=== PATIENT | female | born 1950 | race African-American/Black ===

== ENCOUNTER → 2016-08-10 | Outpatient (CLI) | payer MEDICARE, OTHER ==
[2016-08-10 13:06] LABS: PROTHROMBIN TIME 34.1 SEC (11.4-15.4)
== END ==
LOC: OD 11:38
PROVIDERS: ATTEND Physician Assistant
DX: Z79.01 Long term (current) use of anticoagulants (principal)
CPT/HCPCS: 36415; 85610

== ENCOUNTER → 2016-08-17 | Outpatient (CLI) | payer MEDICARE, OTHER ==
[2016-08-17 12:07] LABS: PROTHROMBIN TIME 36.5 SEC (11.4-15.4)
== END ==
LOC: OD 11:04
PROVIDERS: ATTEND Physician Assistant
DX: Z79.01 Long term (current) use of anticoagulants (principal)
CPT/HCPCS: 36415; 85610

== ENCOUNTER → 2016-08-20 | Outpatient (CLI) | payer MEDICARE, OTHER ==
[2016-08-20 13:53] LABS: PROTHROMBIN TIME 26.1 SEC (11.4-15.4)
== END ==
LOC: OD 12:51
PROVIDERS: ATTEND Physician Assistant
DX: Z79.01 Long term (current) use of anticoagulants (principal)
CPT/HCPCS: 36415; 85610

== ENCOUNTER 2016-08-31 02:25 | Emergency (ER) | payer MEDICARE, OTHER ==
--- NOTE | 2016-08-31 03:13 | ER Document Report ---
ED Headache - General Chief Complaint: Headache Stated Complaint: HEADACHE Time seen by provider: 03:12 Mode of Arrival: Ambulatory Information source: Patient TRAVEL OUTSIDE OF THE [place] IN LAST 30 DAYS: No - HPI Patient complains to provider of: Headache Patient reports: Prior hemorrhage Onset: Just prior to arrival Onset was: Abrupt Timing: Better Quality of pain: Achy Severity: Mild Pain Level: 2 Associated symptoms: Neck pain Similar symptoms previously: Yes Recently seen / treated by doctor: Yes Notes: Patient is a 66-year-old female presenting to the emergency room complaining of a headache that woke her up from sleep, states that it felt like someone hit her in the head, she saw flashing point light, and now her ears are ringing, she denies any vision changes, no nausea or vomiting, no fever or chills, patient does has a history of a previous intracranial bleed and currently takes Coumadin for history of mitral valve replacement - Related Data Allergies/Adverse Reactions: omega-3 acid ethyl esters Allergy (Verified 08/31/16 02:31) propoxyphene napsylate [From Darvocet-N 100] Allergy (Verified 08/31/16 02:31) Past Medical History - General Information source: Patient - Social History Smoking Status: Unknown if Ever Smoked Family History: Arthritis, CAD, CVA, Hyperlipidemia, Hypertension, Malignancy, Thyroid Disfunction, Other - Past Medical History Cardiac Medical History: Reports: Hx Hypercholesterolemia, Hx Hypertension Endocrine Medical History: Reports: Hx Graves' Disease, Hx Hypothyroidism Renal/ Medical History: Reports: Hx Ectopic . Denies: Hx Peritoneal Dialysis GI Medical History: Reports: Hx Colonoscopy - With polyps removed, Hx Endoscopy Musculoskeltal Medical History: Reports Hx Musculoskeletal Deformity Past Surgical History: Reports: Hx Cardiac Surgery - Mitral valve mechanical, Hx Hysterectomy, Hx Thyroid Surgery - Removed r/t goiter - Immunizations Hx Diphtheria, Pertussis, Tetanus Vaccination: Yes - 2002 Hx Pneumococcal Vaccination: 05/01/10 Review of Systems - Review of Systems Constitutional: No symptoms reported EENT: No symptoms reported Cardiovascular: No symptoms reported Respiratory: No symptoms reported Gastrointestinal: No symptoms reported Genitourinary: No symptoms reported Female Genitourinary: No symptoms reported Musculoskeletal: No symptoms reported Skin: No symptoms reported Hematologic/Lymphatic: No symptoms reported Neurological/Psychological: Headaches -: Yes All other systems reviewed and negative Physical Exam - Vital signs Vitals: Temp Pulse Resp BP Pulse Ox 98 F 87 17 139/73 H 97 08/31/16 02:35 08/31/16 02:35 08/31/16 02:35 08/31/16 02:35 08/31/16 02:35 Interpretation: Normal - General General appearance: Appears well, Alert - HEENT Head: Normocephalic, Atraumatic Eyes: Normal Pupils: PERRL - Respiratory Respiratory status: No respiratory distress Chest status: Nontender Breath sounds: Normal Chest palpation: Normal - Cardiovascular Rhythm: Regular Heart sounds: Normal auscultation Murmur: No - Abdominal Inspection: Normal Distension: No distension Bowel sounds: Normal Tenderness: Nontender Organomegaly: No organomegaly - Back Back: Normal, Nontender - Extremities General upper extremity: Normal inspection, Nontender, Normal color, Normal ROM , Normal temperature General lower extremity: Normal inspection, Nontender, Normal color, Normal ROM , Normal temperature, Normal weight bearing. No: Crista's sign - Neurological Neuro grossly intact: Yes Cognition: Normal Orientation: AAOx4 Ro Coma Scale Eye Opening: Spontaneous [place] Coma Scale Verbal: Oriented [place] Coma Scale Motor: Obeys Commands [place] Coma Scale Total: 15 Speech: Normal Motor strength normal: LUE, RUE, LLE, RLE Sensory: Normal - Psychological Associated symptoms: Normal affect, Normal mood - Skin Skin Temperature: Warm Skin Moisture: Dry Skin Color: Normal Course - Re-evaluation Re-evalutation: 08/31/16 04:07 Patient resting comfortably, no symptoms at present time, lab and imaging findings were discussed with patient at bedside, she was informed of her elevated INR, patient reports that she takes Coumadin 5 mg on Tuesday, Tuesday and Tuesday, and 2.5 mg the remaining days of the week, she was advised to take 2.5 mg for the next 3 days and then follow-up with her primary care provider for repeat INR level, she was also advised to follow-up with a neurologist for her continued intermittent head pain, patient acknowledges understanding and agreement with this plan - Vital Signs Vital signs: Temp Pulse Resp BP Pulse Ox 98 F 87 17 139/73 H 97 08/31/16 02:35 08/31/16 02:35 08/31/16 02:35 08/31/16 02:35 01/31/17 02:35 - Laboratory Result Diagrams: 08/31/16 03:25 08/31/16 03:25 Laboratory results interpreted by me: 08/31/16 08/31/16 08/31/16 03:25 03:25 03:25 MCH 25.4 L MCHC 31.8 L RDW 19.4 H PT 43.1 H APTT 73.5 H Est GFR (Non-Af Amer) 52 L Glucose 124 H Alkaline Phosphatase 157 H Total Protein 8.4 H - Diagnostic Test Radiology reviewed: Image reviewed, Reports reviewed Discharge - Discharge Clinical Impression: Supratherapeutic INR Headache Qualifiers: Headache type: unspecified Headache chronicity pattern: acute headache Intractability: not intractable Qualified Code(s): R51 - Headache Condition: Stable Disposition: HOME, SELF-CARE Instructions: Headache ([facility]) Additional Instructions: Take 2.5 mg of Coumadin for the next 3 days. Follow-up with your primary care provider in 2-3 days for repeat Coumadin level and further evaluation and treatment. Follow-up with a neurologist within the next week. Return to the emergency room immediately if symptoms worsen or any additional concerns.
[2016-08-31 03:43] LABS: ABSOLUTE BASOPHILS # (AUTO) 0.1 10^3/uL (0.0-0.2); ABSOLUTE EOSINOPHILS # (AUTO) 0.2 10^3/uL (0.0-0.6); ABSOLUTE LYMPHOCYTES (AUTO) 2.5 10^3/uL (0.5-4.7); ABSOLUTE MONOCYTES (AUTO) 0.7 10^3/uL (0.1-1.4); ABSOLUTE NEUT (AUTO) 6.2 10^3/uL (1.7-8.2); BASOPHILS % (AUTO) 0.6 % (0-2); EOSINOPHILS % (AUTO) 1.8 % (0-6); HEMATOCRIT 38.9 % (36.0-47.0); HEMOGLOBIN 12.4 g/dL (12.0-15.5); HGB HCT DIFFERENCE -1.7; LYMPHOCYTES % (AUTO) 26.1 % (13-45); MEAN CORPUSCULAR HEMOGLOBIN 25.4 pg (27.0-33.4); MEAN CORPUSCULAR HGB CONC 31.8 g/dL (32.0-36.0); MEAN CORPUSCULAR VOLUME 80 fl (80-97); MONOCYTES % (AUTO) 7.7 % (3-13); RED BLOOD COUNT 4.86 10^6/uL (3.72-5.28); RED CELL DISTRIBUTION WIDTH 19.4 % (11.5-14.0); SEGMENTED NEUTROPHILS % (AUTO) 63.8 % (42-78); WHITE BLOOD COUNT 9.7 10^3/uL (4.0-10.5)
[2016-08-31 04:02] LABS: PROTHROMBIN TIME 43.1 SEC (11.4-15.4)
[2016-08-31 04:03] LABS: ALANINE AMINOTRANSFERASE 38 U/L (9-52); ALBUMIN 4.4 g/dL (3.5-5.0); ALKALINE PHOSPHATASE 157 U/L (38-126); ANION GAP 15 (5-19); ASPARTATE AMINO TRANSFERASE 25 U/L (14-36); BILIRUBIN,TOTAL 0.6 mg/dL (0.2-1.3); BLOOD UREA NITROGEN 20 mg/dL (7-20); CARBON DIOXIDE 29 mmol/L (22-30); CHLORIDE 100 mmol/L (98-107); CREATININE RESULT 1.05 mg/dL (0.52-1.25); GLUCOSE 124 mg/dL (75-110); PARTIAL THROMBOPLASTIN TIME 73.5 SEC (23.5-35.8); POTASSIUM 3.7 mmol/L (3.6-5.0); SODIUM 143.8 mmol/L (137-145); TOTAL PROTEIN 8.4 g/dL (6.3-8.2)
[2016-08-31 04:52] VITALS: BP 128/78
--- NOTE | 2016-08-31 11:02 | EKG REPORT ---
SEVERITY:- ABNORMAL ECG - SINUS RHYTHM NONSPECIFIC INTRAVENTRICULAR CONDUCTION DELAY PROBABLE LEFT VENTRICULAR HYPERTROPHY : Confirmed by: Shoshana Johnson 31-Aug-2016 11:01:43
== END 2016-08-31 04:20 | disposition home or self-care (01) ==
LOC: ER 02:25
DX: R51 Headache (principal); H53.8 Other visual disturbances; H93.19 Tinnitus, unspecified ear; Z95.2 Presence of prosthetic heart valve; Z79.01 Long term (current) use of anticoagulants; Z88.8 Allergy status to other drugs, medicaments and biological substances; Z88.5 Allergy status to narcotic agent; Z82.3 Family history of stroke
CPT/HCPCS: 36415; 70450; 80053; 85025; 85610; 85730; 93005; 93010; 99284

== ENCOUNTER → 2016-09-09 | Outpatient (CLI) | payer MEDICARE, OTHER ==
[2016-09-09 14:15] LABS: PROTHROMBIN TIME 24.2 SEC (11.4-15.4)
[2016-09-09 14:30] LABS: ANION GAP 12 (5-19); BLOOD UREA NITROGEN 24 mg/dL (7-20); CALCIUM 10.1 mg/dL (8.4-10.2); CARBON DIOXIDE 29 mmol/L (22-30); CHLORIDE 103 mmol/L (98-107); CREATININE RESULT 1.21 mg/dL (0.52-1.25); GLUCOSE 89 mg/dL (75-110); POTASSIUM 4.4 mmol/L (3.6-5.0); SODIUM 143.9 mmol/L (137-145)
== END ==
LOC: OD 13:13
PROVIDERS: ATTEND Internal Medicine
DX: Z79.01 Long term (current) use of anticoagulants (principal); R42 Dizziness and giddiness; I10 Essential (primary) hypertension; E78.4 Other hyperlipidemia; I65.22 Occlusion and stenosis of left carotid artery; G47.30 Sleep apnea, unspecified; I35.8 Other nonrheumatic aortic valve disorders; Z95.2 Presence of prosthetic heart valve; Z79.899 Other long term (current) drug therapy
CPT/HCPCS: 36415; 80048; 85610

== ENCOUNTER → 2016-09-30 | Outpatient (CLI) | payer MEDICARE, OTHER ==
--- NOTE | 2016-10-01 12:49 | XCELERA REPORT ---
[address] [address] Lower Extremity Venous Evaluation Name: SILVA LUO Age: 66 yrs Gender: Female : 1950 Patient Status: Outpatient Patient Location: Study Date: 09/30/2016 01:30 PM Procedure: Color flow and duplex imaging bilaterally of the veins of the lower extremities as well as the Common Femoral veins. Reason For Study: BLE EDEMA Ordering Physician: JOSE CALLES Performed By: Arjun Moreau Right Sided Venous Evaluation Normal vessel filling wall to wall, compression and augmentation as well as Colour flow down to the infrageniculate veins. Left Sided Venous Evaluation Normal vessel filling wall to wall, compression and augmentation as well as Colour flow down to the infrageniculate veins. Interpretation Summary No duplex evidence of DVT or obstruction in the bilateral lower extremities. : JOSE CALLES > Oc Mahmood
== END ==
LOC: SP 12:57
PROVIDERS: ATTEND Specialist
DX: R60.0 Localized edema (principal)
CPT/HCPCS: 93970

== ENCOUNTER 2016-10-08 12:00 | Emergency (ER) | payer MEDICARE, OTHER ==
--- NOTE | 2016-10-08 12:45 | ER Document Report ---
ED Medical Screen (RME) - General Stated Complaint: RIGHT EYE PAIN, HEADACHE Notes: Patient states she felt a pop in her right eye last night, seeing bright lights. Complains of blurriness in the right eye since then. Patient did have a nosebleed from the right nostril this morning. Also complains of a slight headache which she states it is above the eyes. Denies trauma, and this has never happened to the patient before. Patient states she was seen in July and had bleeding on the brain. I have greeted and performed a rapid initial assessment of this patient. A comprehensive ED assessment and evaluation of the patient, analysis of test results and completion of the medical decision making process will be conducted by additional ED providers. TRAVEL OUTSIDE OF THE [place] IN LAST 30 DAYS: No - Related Data Allergies/Adverse Reactions: omega-3 acid ethyl esters Allergy (Verified 10/08/16 12:40) propoxyphene napsylate [From Darvocet-N 100] Allergy (Verified 10/08/16 12:40) Past Medical History - Past Medical History Cardiac Medical History: Reports: Hx Hypercholesterolemia, Hx Hypertension Endocrine Medical History: Reports: Hx Graves' Disease, Hx Hypothyroidism Renal/ Medical History: Reports: Hx Ectopic . Denies: Hx Peritoneal Dialysis GI Medical History: Reports: Hx Colonoscopy - With polyps removed, Hx Endoscopy Musculoskeltal Medical History: Reports Hx Musculoskeletal Deformity Past Surgical History: Reports: Hx Cardiac Surgery - Mitral valve mechanical, Hx Hysterectomy, Hx Thyroid Surgery - Removed r/t goiter - Immunizations Hx Diphtheria, Pertussis, Tetanus Vaccination: Yes - 2002 Physical Exam - Vital signs Vitals: Temp Pulse Resp BP Pulse Ox 98.1 F 69 16 135/67 H 97 10/08/16 12:07 10/08/16 12:07 10/08/16 12:07 10/08/16 12:07 10/08/16 12:07 Course - Vital Signs Vital signs: Temp Pulse Resp BP Pulse Ox 98.1 F 69 16 135/67 H 97 10/08/16 12:07 10/08/16 12:07 10/08/16 12:07 10/08/16 12:07 10/08/16 12:07
--- NOTE | 2016-10-08 16:22 | ER Document Report ---
ED General - General Chief Complaint: Eye Pain Stated Complaint: RIGHT EYE PAIN, HEADACHE Time seen by provider: 16:18 Mode of Arrival: Ambulatory Information source: Patient Notes: This is a 66-year-old female with a history of her prosthetic mitral valve (on Coumadin), history of right frontoparietal intraparenchymal bleed (July 2016 ). Patient presents today with complaints of "bright light in the right eye, slight blurry vision, nosebleed, slight headach". Patient's symptoms began this morning. He was concerned about an intracranial bleed and came to the emergency room. TRAVEL OUTSIDE OF THE [place] IN LAST 30 DAYS: No - HPI Onset: Just prior to arrival Onset/Duration: Gradual Quality of pain: No pain Severity: None Pain Level: Denies Associated symptoms: denies: Chills, Fever Exacerbated by: Denies Relieved by: Denies Similar symptoms previously: Yes Recently seen / treated by doctor: Yes - Related Data Allergies/Adverse Reactions: omega-3 acid ethyl esters Allergy (Verified 10/08/16 12:40) propoxyphene napsylate [From Darvocet-N 100] Allergy (Verified 10/08/16 12:40) Past Medical History - General Information source: Patient - Social History Smoking Status: Never Smoker Cigarette use (# per day): No Chew tobacco use (# tins/day): No Frequency of alcohol use: None Drug Abuse: None Lives with: Family Family History: Arthritis, CAD, CVA, Hyperlipidemia, Hypertension, Malignancy, Thyroid Disfunction, Other Patient has suicidal ideation: No Patient has homicidal ideation: No - Past Medical History Cardiac Medical History: Reports: Hx Hypercholesterolemia, Hx Hypertension Endocrine Medical History: Reports: Hx Graves' Disease, Hx Hypothyroidism Renal/ Medical History: Reports: Hx Ectopic . Denies: Hx Peritoneal Dialysis GI Medical History: Reports: Hx Colonoscopy - With polyps removed, Hx Endoscopy Musculoskeltal Medical History: Reports Hx Musculoskeletal Deformity Past Surgical History: Reports: Hx Cardiac Surgery - Mitral valve mechanical, Hx Hysterectomy, Hx Thyroid Surgery - Removed r/t goiter - Immunizations Hx Diphtheria, Pertussis, Tetanus Vaccination: Yes - 2002 Hx Pneumococcal Vaccination: 05/01/10 Review of Systems - Review of Systems Constitutional: denies: Chills, Fever EENT: Other - Nosebleed, visual changes Cardiovascular: No symptoms reported Respiratory: No symptoms reported Gastrointestinal: No symptoms reported Genitourinary: No symptoms reported Female Genitourinary: No symptoms reported Musculoskeletal: No symptoms reported Skin: No symptoms reported Hematologic/Lymphatic: No symptoms reported Neurological/Psychological: See HPI Physical Exam - Vital signs Vitals: Temp Pulse Resp BP Pulse Ox 98.1 F 69 16 135/67 H 97 10/08/16 12:07 10/08/16 12:07 10/08/16 12:07 10/08/16 12:07 10/08/16 12:07 Notes: Physical exam: GENERAL: 66-year-old female, alert and oriented 3, no acute distress. Patient ambulating around the emergency room without difficulty. Patient is conversant and does not appear to be in any distress. HEAD: Atraumatic, normocephalic. EYES: Pupils equal round and reactive to light, extraocular movements intact, sclera anicteric, conjunctiva are normal. ENT: TMs normal, nares patent (bleeding resolved), oropharynx clear without exudates. Moist mucous membranes. NECK: Normal range of motion, supple without lymphadenopathy or JVD. LUNGS: Breath sounds clear to auscultation bilaterally and equal. No wheezes rales or rhonchi. HEART: Regular rate and rhythm with mitral click from the prosthetic valve. ABDOMEN: Soft, normoactive bowel sounds. No tenderness to palpation. No guarding, no rebound. No masses appreciated. EXTREMITIES: Normal range of motion, no pitting or edema. No clubbing or cyanosis. NEUROLOGICAL: Cranial nerves II through XII grossly intact. Motor 5/5, sensory grossly intact, cerebellar (finger to nose) good, gait normal. PSYCH: Normal mood, normal affect. SKIN: Warm, Dry, normal turgor, no rashes or lesions noted. Course - Re-evaluation Re-evalutation: 10/08/16 18:46 I reviewed the labs with the patient. Her INR is 2.9. The goal for her anticoagulation is between [address] of the head shows no bleed. She will follow-up with her primary care doctor. I've given her a copy of today's labs, CT report. She also has had follow-up with her neurologist with a recent EEG and has plans to follow-up with Dr. ayala. She is well has an appointment with the hairmasters manager. I've advised her that if the visual changes get worse , she should call her hairmasters manager to get in sooner or return to the emergency room. The concern for this patient given her history and the fact that she is on Coumadin is for any bleeding, CT does not reveal any evidence of acute bleeding at this time and her Coumadin level is therapeutic. She is ambulating around the emergency room at this time and looks quite good. 10/08/16 18:46 10/08/16 18:47 - Vital Signs Vital signs: Temp Pulse Resp BP Pulse Ox 98.1 F 69 16 135/67 H 97 10/08/16 12:07 10/08/16 12:07 10/08/16 12:07 10/08/16 12:07 10/08/16 12:07 - Laboratory Result Diagrams: 10/08/16 16:18 10/08/16 16:18 Laboratory results interpreted by me: 10/08/16 10/08/16 10/08/16 16:18 16:18 17:20 MCH 25.6 L MCHC 31.5 L RDW 18.7 H PT 31.8 H Sodium 146.3 H Carbon Dioxide 31 H Calcium 10.4 H Alkaline Phosphatase 146 H - Diagnostic Test Radiology reviewed: Image reviewed, Reports reviewed - CT of the head shows no acute bleed Discharge - Discharge Clinical Impression: headache, nosebleed resolved Condition: Stable Disposition: HOME, SELF-CARE Additional Instructions: Recommendations: 1. Follow-up with your hairmasters manager as planned. 2. Continue current medicines. 3. Follow-up with Dr. Carter this week: Tell the office you in the emergency room and had a CT of the head. 4. Follow-up with your neurologist as planned. 5. Return to the emergency room for worsening headache, worsening vision changes, any concerns he getting worse. Referrals: SNOW CARTER MD [Primary Care Provider] - Follow up as needed
[2016-10-08 16:46] LABS: ABSOLUTE BASOPHILS # (AUTO) 0.2 10^3/uL (0.0-0.2); ABSOLUTE EOSINOPHILS # (AUTO) 0.2 10^3/uL (0.0-0.6); ABSOLUTE LYMPHOCYTES (AUTO) 2.1 10^3/uL (0.5-4.7); ABSOLUTE MONOCYTES (AUTO) 0.6 10^3/uL (0.1-1.4); ABSOLUTE NEUT (AUTO) 5.6 10^3/uL (1.7-8.2); BASOPHILS % (AUTO) 1.9 % (0-2); EOSINOPHILS % (AUTO) 2.6 % (0-6); HEMATOCRIT 38.5 % (36.0-47.0); HEMOGLOBIN 12.1 g/dL (12.0-15.5); HGB HCT DIFFERENCE -2.2; LYMPHOCYTES % (AUTO) 24.2 % (13-45); MEAN CORPUSCULAR HEMOGLOBIN 25.6 pg (27.0-33.4); MEAN CORPUSCULAR HGB CONC 31.5 g/dL (32.0-36.0); MEAN CORPUSCULAR VOLUME 81 fl (80-97); MONOCYTES % (AUTO) 6.7 % (3-13); RED BLOOD COUNT 4.74 10^6/uL (3.72-5.28); RED CELL DISTRIBUTION WIDTH 18.7 % (11.5-14.0); SEGMENTED NEUTROPHILS % (AUTO) 64.6 % (42-78); WHITE BLOOD COUNT 8.7 10^3/uL (4.0-10.5)
[2016-10-08 17:04] LABS: ALANINE AMINOTRANSFERASE 37 U/L (9-52); ALBUMIN 4.6 g/dL (3.5-5.0); ALKALINE PHOSPHATASE 146 U/L (38-126); ANION GAP 11 (5-19); ASPARTATE AMINO TRANSFERASE 26 U/L (14-36); BILIRUBIN,TOTAL 0.9 mg/dL (0.2-1.3); BLOOD UREA NITROGEN 16 mg/dL (7-20); CALCIUM 10.4 mg/dL (8.4-10.2); CARBON DIOXIDE 31 mmol/L (22-30); CHLORIDE 104 mmol/L (98-107); CREATININE RESULT 0.94 mg/dL (0.52-1.25); GLUCOSE 89 mg/dL (75-110); POTASSIUM 4.1 mmol/L (3.6-5.0); SODIUM 146.3 mmol/L (137-145); TOTAL PROTEIN 8.2 g/dL (6.3-8.2)
[2016-10-08 17:33] LABS: THYROID STIMULATING HORMONE 2.03 uIU/mL (0.47-4.68)
[2016-10-08 17:42] LABS: PROTHROMBIN TIME 31.8 SEC (11.4-15.4)
[2016-10-08 18:50] VITALS: BP 133/72
== END 2016-10-08 18:50 | disposition home or self-care (01) ==
LOC: ER 12:00
DX: R51 Headache (principal); R04.0 Epistaxis; H53.8 Other visual disturbances; I10 Essential (primary) hypertension; E89.0 Postprocedural hypothyroidism; Z95.2 Presence of prosthetic heart valve; Z79.01 Long term (current) use of anticoagulants; Z88.5 Allergy status to narcotic agent; Z88.8 Allergy status to other drugs, medicaments and biological substances; Z82.3 Family history of stroke
CPT/HCPCS: 36415; 70450; 80053; 84439; 84443; 85025; 85610; 99284

== ENCOUNTER → 2017-01-01 | Outpatient (CLI) | payer MEDICARE, OTHER ==
[2017-01-01 12:02] LABS: PROTHROMBIN TIME 19.5 SEC (11.4-15.4)
== END ==
LOC: LAB 11:36
PROVIDERS: ATTEND Physician Assistant
DX: Z79.01 Long term (current) use of anticoagulants (principal)
CPT/HCPCS: 36415; 85610

== ENCOUNTER → 2017-01-07 | Outpatient (CLI) | payer MEDICARE, OTHER ==
[2017-01-07 13:43] LABS: PROTHROMBIN TIME 16.3 SEC (11.4-15.4)
== END ==
LOC: LAB 12:56
PROVIDERS: ATTEND Physician Assistant
DX: Z79.01 Long term (current) use of anticoagulants (principal); Z51.81 Encounter for therapeutic drug level monitoring
CPT/HCPCS: 36415; 85610

== ENCOUNTER → 2017-01-10 | Outpatient (CLI) | payer MEDICARE, OTHER ==
[2017-01-10 12:41] LABS: PROTHROMBIN TIME 24.4 SEC (11.4-15.4)
== END ==
LOC: LAB 12:12
PROVIDERS: ATTEND Physician Assistant
DX: Z79.01 Long term (current) use of anticoagulants (principal)
CPT/HCPCS: 36415; 85610

== ENCOUNTER → 2017-02-10 | Outpatient (CLI) | payer MEDICARE ==
--- NOTE | 2017-02-11 08:53 | WOMENS IMAGING REPORT ---
EXAM DESCRIPTION: BILAT SCREENING MAMMO W/CAD COMPLETED DATE/TIME: 02/10/2017 4:21 pm REASON FOR STUDY: ROUTINE SCREENING; Z12.31 Z12.31 ENCNTR SCREEN MAMMOGRAM FOR MALIGNANT NEOPLASM O F INEZ COMPARISON: Multiple since 2013 TECHNIQUE: Standard craniocaudal and mediolateral oblique views of each breast recorded using Qlibria l acquisition. LIMITATIONS: None. FINDINGS: Findings present which are benign by mammographic criteria. No suspicious masses, calcifi cations or architectural distortion. Pertinent benign findings: Benign bilateral calcifications Read with the assistance of CAD. [facility] - R2 Cenova Version 1.3 .[facility] - R2 Cenova Version 1.[address] - R2 Cenova Version 2.4 .[facility] - R2 Cenova Version 2.4 .[facility] - R2 Cementer Version 9.2 Benign mammographic findings may include one or more of the following: Smooth masses, popcorn/rim/co arse calcifications, asymmetries, post-procedure changes, and lesions with long-standing stability. IMPRESSION: BENIGN MAMMOGRAPHIC FINDINGS. BIRADS 2 BREAST DENSITY: b. There are scattered areas of fibroglandular density. BIRAD: 2 BENIGN FINDING(S) RECOMMENDATION: ROUTINE SCREENING Please consider bilateral screening tomosynthesis in January 2018 COMMENT: The patient has been notified of the results by letter per MQSA requirements. Additional no tification policies are in place for contacting patient with suspicious or incomplete findings. Quality ID #[id number]: The [employer] recommends an annual screening mammogram for women aged 40 years or over. This facility utilizes a reminder system to ensure that all patients receive reminder letters, and/or direct phone calls for appointments. This includes reminders for routine scr eening mammograms, diagnostic mammograms, or other Breast Imaging Interventions when appropriate. Th is patient will be placed in the appropriate reminder system. The [employer] (ACR) has developed recommendations for screening MRI of the breast s in certain patient populations, to be used in conjunction with mammography. Breast MRI surveillanc e may be appropriate for women with more than 20% lifetime risk of developing breast cancer as deter mined by genetic testing, significant family history of the disease, or history of mantle radiation f or Hodgkins Disease. ACR Practice Guidelines 2008. TECHNICAL DOCUMENTATION: FINDING NUMBER: (1) ASSESSMENT: (1) JOB ID: [id number] [employer]- All Rights Reserved
== END ==
LOC: WI 15:07
PROVIDERS: ATTEND Physician Assistant
DX: Z12.31 Encounter for screening mammogram for malignant neoplasm of breast (principal)
CPT/HCPCS: 77067; G0202

== ENCOUNTER 2017-02-24 12:06 | Emergency (ER) | payer MEDICARE, OTHER ==
[2017-02-24 12:14] VITALS: BP 138/65
--- NOTE | 2017-02-24 12:31 | ER Document Report ---
ED Extremity Problem, Lower - General Chief Complaint: Ankle Pain Stated Complaint: ANKLE PAIN Time Seen by Provider: 02/24/17 12:25 Notes: Patient states that for 1 month she had some discoloration of both ankles and feet. She states she also has "altered sensation" that she believes is consistent with a pins and needles sensation in both feet. She states she is concerned that there is no appropriate blood flow to her feet. She states that 2 weeks ago she went to her primary medical doctor and he ran blood tests but they were all normal. She also states that her INR was checked and it was appropriate. Patient states she takes warfarin for a mitral valve replacement. Patient states the sensation is intermittent. Nothing makes it better or worse. There is no radiation of the symptoms. TRAVEL OUTSIDE OF THE [place] IN LAST 30 DAYS: No - Related Data Allergies/Adverse Reactions: omega-3 acid ethyl esters Allergy (Verified 02/24/17 12:10) propoxyphene napsylate [From Darvocet-N 100] Allergy (Verified 02/24/17 12:10) Past Medical History - General Information source: Patient - Social History Smoking Status: Never Smoker Chew tobacco use (# tins/day): No Frequency of alcohol use: None Drug Abuse: None Family History: Arthritis, CAD, CVA, Hyperlipidemia, Hypertension, Malignancy, Thyroid Disfunction, Other - Medical History Medical History: Other - Valve replacement on Coumadin, intracerebral hemorrhage. - Past Medical History Cardiac Medical History: Reports: Hx Hypercholesterolemia, Hx Hypertension Endocrine Medical History: Reports: Hx Diabetes Mellitus Type 2, Hx Graves' Disease, Hx Hypothyroidism Renal/ Medical History: Reports: Hx Ectopic . Denies: Hx Peritoneal Dialysis GI Medical History: Reports: Hx Colonoscopy - With polyps removed, Hx Endoscopy Musculoskeltal Medical History: Reports Hx Musculoskeletal Deformity Past Surgical History: Reports: Hx Cardiac Surgery - Mitral valve mechanical, Hx Hysterectomy, Hx Thyroid Surgery - Removed r/t goiter - Immunizations Hx Diphtheria, Pertussis, Tetanus Vaccination: Yes - 2002 Hx Pneumococcal Vaccination: 05/01/10 Review of Systems - Review of Systems Constitutional: denies: Chills, Fever Respiratory: denies: Cough, Short of breath Gastrointestinal: denies: Diarrhea, Vomiting Physical Exam - Vital signs Vitals: Temp Pulse Resp BP Pulse Ox 97.8 F 68 16 138/65 H 98 02/24/17 12:12 02/24/17 12:12 02/24/17 12:12 02/24/17 12:12 02/24/17 12:12 Interpretation: Normal - General General appearance: Appears well, Alert - Respiratory Respiratory status: No respiratory distress Chest status: Nontender Breath sounds: Normal Chest palpation: Normal - Cardiovascular Rhythm: Regular Heart sounds: Normal auscultation Murmur: No Pulses: Bounding: Dorsalis pedis - Bilateral Normal capillary refill: Yes - Bilateral toe - Extremities General upper extremity: Normal inspection, Nontender, Normal color, Normal ROM , Normal temperature General lower extremity: Nontender, Edema, Normal ROM, Normal temperature, Normal weight bearing. No: Crista's sign Foot: Normal - biLateral - Psychological Associated symptoms: Normal affect, Normal mood - Skin Skin Temperature: Warm Skin Moisture: Dry Skin Color: Hyperpigmentation - Bilateral ankles Course - Vital Signs Vital signs: Temp Pulse Resp BP Pulse Ox 97.8 F 68 16 138/65 H 98 02/24/17 12:12 02/24/17 12:12 02/24/17 12:12 02/24/17 12:12 02/24/17 12:12 Discharge - Discharge Clinical Impression: Paresthesias Condition: Stable Disposition: HOME, SELF-CARE Instructions: Numbness or Paresthesia ([facility]) Additional Instructions: Please follow-up with your early childhood associate as scheduled
== END 2017-02-24 12:35 | disposition home or self-care (01) ==
LOC: ER 12:06
DX: R20.2 Paresthesia of skin (principal); Z95.2 Presence of prosthetic heart valve; Z79.01 Long term (current) use of anticoagulants
CPT/HCPCS: 99283

== ENCOUNTER → 2017-06-24 | Outpatient (CLI) | payer MEDICARE, OTHER ==
[2017-06-24 15:13] LABS: ANION GAP 15 (5-19); BLOOD UREA NITROGEN 24 mg/dL (7-20); CALCIUM 9.6 mg/dL (8.4-10.2); CARBON DIOXIDE 24 mmol/L (22-30); CHLORIDE 105 mmol/L (98-107); CREATININE RESULT 1.17 mg/dL (0.52-1.25); GLUCOSE 94 mg/dL (75-110); POTASSIUM 4.1 mmol/L (3.6-5.0); SODIUM 144.1 mmol/L (137-145)
== END ==
LOC: OD 13:38
PROVIDERS: ATTEND Internal Medicine
DX: R42 Dizziness and giddiness (principal); Z95.2 Presence of prosthetic heart valve; I10 Essential (primary) hypertension; I35.8 Other nonrheumatic aortic valve disorders; R01.1 Cardiac murmur, unspecified; E78.4 Other hyperlipidemia; I65.22 Occlusion and stenosis of left carotid artery; G47.30 Sleep apnea, unspecified; Z79.899 Other long term (current) drug therapy
CPT/HCPCS: 36415; 80048

== ENCOUNTER → 2017-07-28 | Outpatient (CLI) | payer MEDICARE, OTHER ==
--- NOTE | 2017-07-28 14:30 | RADIOLOGY REPORT (SQ) ---
EXAM DESCRIPTION: CHEST PA/LATERAL COMPLETED DATE/TIME: 07/28/2017 1:37 pm REASON FOR STUDY: OTH SYMPTOMS AND SIGNS INVOLVING THE CIRC AND RESP SYSTEMS COMPARISON: July 2016 EXAM PARAMETERS: NUMBER OF VIEWS: two views TECHNIQUE: Digital Frontal and Lateral radiographic views of the chest acquired. RADIATION DOSE: NA LIMITATIONS: none FINDINGS: LUNGS AND PLEURA: No opacities, masses or pneumothorax. No pleural effusion. MEDIASTINUM AND HILAR STRUCTURES: No masses or contour abnormalities. HEART AND VASCULAR STRUCTURES: Cardiac silhouette remains enlarged and is unchanged in configuration BONES: No acute findings. HARDWARE: Patient is status post median sternotomy with mitral valve replacement. OTHER: No other significant finding. IMPRESSION: No significant interval change. Cardiomegaly. No acute changes. Other findings as not ed above TECHNICAL DOCUMENTATION: JOB ID: [id number] [employer]- All Rights Reserved
== END ==
LOC: OD 13:02
PROVIDERS: ATTEND Physician Assistant
DX: R09.89 Other specified symptoms and signs involving the circulatory and respiratory systems (principal)
CPT/HCPCS: 71020

== ENCOUNTER 2017-08-14 06:28 | Emergency (ER) | payer MEDICARE, OTHER ==
--- NOTE | 2017-08-14 07:21 | RADIOLOGY REPORT (SQ) ---
EXAM DESCRIPTION: CT HEAD WITHOUT CLINICAL HISTORY: headache COMPARISON: 08/31/2016 TECHNIQUE: Axial CT of the head obtained from the skull apex to the skull base without contrast. FINDINGS: No acute intracranial hemorrhage identified. No mass, mass effect, shift of the midline, abnormal extra-axial fluid collection or CT evidence of acute ischemic change identified. The ventricular system and sulcal spaces are mildly enlarged compatible with mild cerebral atrophy. Scattered areas of hypodensity throughout the supratentorial white matter are nonspecific and may be related to chronic small vessel ischemic change. Minimal opacities in the left maxillary sinus. Mastoid air cells are well aerated. Hyperostosis frontalis interna. No skull fracture identified. Visualized orbits and globes are unremarkable. Atherosclerotic calcification of the intracranial internal carotid arteries. DLP:1162.97 mGy-cm IMPRESSION: 1. No acute intracranial abnormality by CT criteria. This exam was performed according to our departmental dose-optimization program, which includes automated exposure control, adjustment of the mA and/or kV according to patient size and/or use of iterative reconstruction technique.
[2017-08-14 07:23] LABS: ABSOLUTE BASOPHILS # (AUTO) 0.1 10^3/uL (0.0-0.2); ABSOLUTE EOSINOPHILS # (AUTO) 0.2 10^3/uL (0.0-0.6); ABSOLUTE LYMPHOCYTES (AUTO) 1.8 10^3/uL (0.5-4.7); ABSOLUTE MONOCYTES (AUTO) 0.6 10^3/uL (0.1-1.4); ABSOLUTE NEUT (AUTO) 6.5 10^3/uL (1.7-8.2); BASOPHILS % (AUTO) 0.8 % (0-2); EOSINOPHILS % (AUTO) 2.7 % (0-6); HEMATOCRIT 37.4 % (36.0-47.0); HEMOGLOBIN 11.9 g/dL (12.0-15.5); LYMPHOCYTES % (AUTO) 19.2 % (13-45); MEAN CORPUSCULAR HEMOGLOBIN 26.6 pg (27.0-33.4); MEAN CORPUSCULAR HGB CONC 31.9 g/dL (32.0-36.0); MEAN CORPUSCULAR VOLUME 83 fl (80-97); MONOCYTES % (AUTO) 6.6 % (3-13); PLATELET COUNT 272 10^3/uL (150-450); RED CELL DISTRIBUTION WIDTH 17.8 % (11.5-14.0); SEGMENTED NEUTROPHILS % (AUTO) 70.7 % (42-78); TOTAL CELLS COUNTED % (AUTO) 100 %; WHITE BLOOD COUNT 9.2 10^3/uL (4.0-10.5)
[2017-08-14 07:26] LABS: PROTHROMBIN TIME 25.6 SEC (11.4-15.4)
[2017-08-14 07:40] LABS: CREATINE KINASE MB 1.88 ng/mL (<4.55); TROPONIN I 0.022 ng/mL
--- NOTE | 2017-08-14 07:50 | ER Document Report ---
ED General - General Chief Complaint: Numbness Stated Complaint: FOOT TINGLING,EYE PAIN Time Seen by Provider: 08/14/17 06:45 TRAVEL OUTSIDE OF THE [place] IN LAST 30 DAYS: No - HPI Patient complains to provider of: Right eye pain left foot weakness and tingling chest pain Notes: Patient presents today for right eye pain left foot tingling and weakness and chest pain. Patient states she woke up states that her left foot was drinking that she had a total body jerk experiencing the symptoms. Patient states since that time the foot initially was weak and hard to move and tingling now able to ambulate on her own with decreased symptoms came in because of a history of intracranial bleed in the past. Patient is on Coumadin due to valve replacement. Patient also states chest pain left sided sharp and pinching. Patient denies any radiation denies any nausea vomiting shortness of breath fevers or chills. Patient also states right eye pain. Denies any visual disturbances denies any trauma. Patient able to ambulate into the room by herself no difficulty. By my evaluation patient looks very well no signs of acute distress. - Related Data Allergies/Adverse Reactions: omega-3 acid ethyl esters Allergy (Verified 08/14/17 06:38) propoxyphene napsylate [From Darvocet-N 100] Allergy (Verified 08/14/17 06:38) Past Medical History - Social History Smoking Status: Never Smoker Frequency of alcohol use: None Drug Abuse: None Family History: Arthritis, CAD, CVA, Hyperlipidemia, Hypertension, Malignancy, Thyroid Disfunction, Other Patient has suicidal ideation: No Patient has homicidal ideation: No - Past Medical History Cardiac Medical History: Reports: Hx Hypercholesterolemia, Hx Hypertension Endocrine Medical History: Reports: Hx Diabetes Mellitus Type 2, Hx Graves' Disease, Hx Hypothyroidism Renal/ Medical History: Reports: Hx Ectopic . Denies: Hx Peritoneal Dialysis GI Medical History: Reports: Hx Colonoscopy - With polyps removed, Hx Endoscopy Musculoskeltal Medical History: Reports Hx Musculoskeletal Deformity Past Surgical History: Reports: Hx Cardiac Surgery - Mitral valve mechanical, Hx Hysterectomy, Hx Thyroid Surgery - Removed r/t goiter - Immunizations Hx Diphtheria, Pertussis, Tetanus Vaccination: Yes - 2002 Hx Pneumococcal Vaccination: 05/01/10 Review of Systems - Review of Systems Constitutional: Other - Chest pain eye pain left foot weakness EENT: No symptoms reported Cardiovascular: No symptoms reported Respiratory: No symptoms reported Gastrointestinal: No symptoms reported Genitourinary: No symptoms reported Female Genitourinary: No symptoms reported Musculoskeletal: No symptoms reported Skin: No symptoms reported Hematologic/Lymphatic: No symptoms reported Neurological/Psychological: No symptoms reported Physical Exam - Vital signs Vitals: Temp Pulse Resp BP Pulse Ox 97.7 F 81 20 152/78 H 98 08/14/17 06:31 08/14/17 06:31 08/14/17 06:31 08/14/17 06:31 08/14/17 06:31 Interpretation: Normal - General General appearance: Appears well, Alert - HEENT Head: Normocephalic, Atraumatic Eyes: Normal Pupils: PERRL - Respiratory Respiratory status: No respiratory distress Chest status: Nontender Breath sounds: Normal Chest palpation: Normal - Cardiovascular Rhythm: Regular Heart sounds: Normal auscultation Murmur: No - Abdominal Inspection: Normal Distension: No distension Bowel sounds: Normal Tenderness: Nontender Organomegaly: No organomegaly - Back Back: Normal, Nontender - Extremities General upper extremity: Normal inspection, Nontender, Normal color, Normal ROM , Normal temperature General lower extremity: Normal inspection, Nontender, Normal color, Normal ROM , Normal temperature, Normal weight bearing. No: Crista's sign - Neurological Neuro grossly intact: Yes Cognition: Normal Orientation: AAOx4 Ro Coma Scale Eye Opening: Spontaneous Ro Coma Scale Verbal: Oriented Ro Coma Scale Motor: Obeys Commands Kelly Coma Scale Total: 15 Speech: Normal Cranial nerves: Normal Motor strength normal: LUE, RUE, LLE, RLE Additional motor exam normals: Equal talent partner, Other - Equal muscle strength of dorsi and plantar flexion Sensory: Normal - Psychological Associated symptoms: Normal affect, Normal mood - Skin Skin Temperature: Warm Skin Moisture: Dry Skin Color: Normal Course - Re-evaluation Re-evalutation: 08/14/17 07:47 CT of the head does not show anything acute. Patient will be further monitored for her other symptoms. At this time patient has no unilateral weakness no signs of stroke. Neurological examination is normal. 08/14/17 15:34 The patient has atypical chest pain as the patient's chest pain is not suggestive of pulmonary embolus, cardiac ischemia, aortic dissection, or other serious etiology. Given the extremely low risk of these diagnoses further testing and evaluation for these possibilities does not appear to be indicated at this time. The patient has been instructed to return if the symptoms worsen or change in any way. - Vital Signs Vital signs: Temp Pulse Resp BP Pulse Ox 98.5 F 66 16 117/81 97 08/14/17 12:47 08/14/17 12:47 08/14/17 12:47 08/14/17 12:47 08/14/17 12:47 - Laboratory Result Diagrams: 08/14/17 06:55 08/14/17 07:56 Laboratory results interpreted by me: 08/14/17 08/14/17 08/14/17 06:55 06:55 07:56 Hgb 11.9 L MCH 26.6 L MCHC 31.9 L RDW 17.8 H PT 25.6 H BUN 22 H Est GFR (Non-Af Amer) 50 L Calcium 10.4 H Creatine Kinase 289 H Discharge - Discharge Clinical Impression: Chest pain of uncertain etiology, left foot numbess resolved Condition: Good Disposition: HOME, SELF-CARE Instructions: Chest Wall Pain ([facility]), Chest Pain of Unclear Cause ([facility]), Numbness or Paresthesia ([facility]) Additional Instructions: At this time your laboratory studies and x-rays do not show any acute pathology. Not have a reason why your left foot was numb today also do not have a clear etiology for the pinching chest pain. Please make sure you follow- up with your primary care physician please continue to take her home medications as prescribed return to the ER if symptoms worsen. Referrals: SNOW CARTER MD [Primary Care Provider] - Follow up as needed
--- NOTE | 2017-08-14 08:08 | RADIOLOGY REPORT (SQ) ---
EXAM DESCRIPTION: CHEST SINGLE VIEW COMPLETED DATE/TIME: 08/14/2017 7:06 am REASON FOR STUDY: Chest pain COMPARISON: Chest x-ray 07/28/2017. EXAM PARAMETERS: NUMBER OF VIEWS: One view. TECHNIQUE: Single frontal radiographic view of the chest acquired. RADIATION DOSE: NA LIMITATIONS: None. FINDINGS: LUNGS AND PLEURA: Mild atelectasis at the right lung base. No pneumothorax or pleural eff usion. MEDIASTINUM AND HILAR STRUCTURES: No masses. Contour normal. HEART AND VASCULAR STRUCTURES: The heart remains enlarged. There is no overt vascular congestion. BONES: No acute findings. HARDWARE: The patient is status post open heart surgery and cardiac valve prosthesis. IMPRESSION: Cardiomegaly. Mild right basilar atelectasis. TECHNICAL DOCUMENTATION: JOB ID: [id number]-64 2010 [employer]- All Rights Reserved
[2017-08-14 08:36] LABS: ALANINE AMINOTRANSFERASE 39 U/L (9-52); ALBUMIN 4.2 g/dL (3.5-5.0); ALKALINE PHOSPHATASE 115 U/L (38-126); ANION GAP 11 (5-19); ASPARTATE AMINO TRANSFERASE 27 U/L (14-36); BILIRUBIN,DIRECT 0.2 mg/dL (0.0-0.4); BILIRUBIN,TOTAL 0.5 mg/dL (0.2-1.3); BLOOD UREA NITROGEN 22 mg/dL (7-20); CALCIUM 10.4 mg/dL (8.4-10.2); CARBON DIOXIDE 27 mmol/L (22-30); CHLORIDE 106 mmol/L (98-107); CREATINE KINASE 289 U/L (30-135); GLUCOSE 95 mg/dL (75-110); SODIUM 143.9 mmol/L (137-145)
--- NOTE | 2017-08-14 08:40 | EKG REPORT ---
SEVERITY:- ABNORMAL ECG - SINUS RHYTHM LEFT ATRIAL ABNORMALITY NONSPECIFIC INTRAVENTRICULAR CONDUCTION DELAY BORDERLINE R WAVE PROGRESSION, ANTERIOR LEADS : Confirmed by: Abe Bales MD 14-Aug-2017 08:39:27
[2017-08-14] MEDS ORDERED: ACETAMINOPHEN 325 MG TABLET PO ONE (10:01)
[2017-08-14 13:15] VITALS: BP 117/81
== END 2017-08-14 12:47 | disposition home or self-care (01) ==
LOC: ER 06:28
DX: R20.0 Anesthesia of skin (principal); R07.9 Chest pain, unspecified; E78.00 Pure hypercholesterolemia, unspecified; I10 Essential (primary) hypertension; E11.9 Type 2 diabetes mellitus without complications; Z95.2 Presence of prosthetic heart valve; Z90.710 Acquired absence of both cervix and uterus; Z79.01 Long term (current) use of anticoagulants
CPT/HCPCS: 93005; 99285; 36415; 82553; 82550; 85025; 85610; 84484; 80053; 71045; 70450; 93010; A9270

== ENCOUNTER → 2017-08-30 | Outpatient (CLI) | payer MEDICARE, OTHER ==
--- NOTE | 2017-08-30 15:23 | WOMENS IMAGING REPORT ---
EXAM DESCRIPTION: RETROPERITONEAL U/S COMPLETED DATE/TIME: 08/30/2017 2:50 pm REASON FOR STUDY: CHRONIC KIDNEY; N18.2 N18.2 CHRONIC KIDNEY DISEASE, STAGE 2 (MILD) I10 ESSENTIAL (PRIMARY) HYPERTENSION COMPARISON: None. TECHNIQUE: Dynamic and static grayscale images acquired of the kidneys and bladder and recorded on P ACS. Additional selected color Doppler and spectral images recorded. LIMITATIONS: None. FINDINGS: RIGHT KIDNEY: Normal size. Normal echogenicity. No solid or suspicious masses. No hydronep hrosis. No calcifications. LEFT KIDNEY: Normal size. Normal echogenicity. No solid or suspicious masses. No hydronephrosis. No calcifications. BLADDER: No masses. OTHER FINDINGS: Incidental enlarged echogenic likely fatty liver measuring just over 20 cm. IMPRESSION: 1. Sonographically normal kidneys and bladder. 2. Enlarged fatty liver. TECHNICAL DOCUMENTATION: JOB ID: [id number] [employer]- All Rights Reserved
== END ==
LOC: WI 13:56
PROVIDERS: ATTEND Internal Medicine Nephrology
DX: I12.9 Hypertensive chronic kidney disease with stage 1 through stage 4 chronic kidney disease, or unspecified chronic kidney disease (principal); N18.2 Chronic kidney disease, stage 2 (mild); K76.0 Fatty (change of) liver, not elsewhere classified
CPT/HCPCS: 76770

== ENCOUNTER → 2017-09-21 | Outpatient (CLI) | payer MEDICARE, OTHER ==
[2017-09-21 17:39] LABS: ABSOLUTE BASOPHILS # (AUTO) 0.1 10^3/uL (0.0-0.2); ABSOLUTE EOSINOPHILS # (AUTO) 0.3 10^3/uL (0.0-0.6); ABSOLUTE MONOCYTES (AUTO) 0.7 10^3/uL (0.1-1.4); ABSOLUTE NEUT (AUTO) 5.6 10^3/uL (1.7-8.2); BASOPHILS % (AUTO) 0.8 % (0-2); HEMATOCRIT 37.7 % (36.0-47.0); LYMPHOCYTES % (AUTO) 23.5 % (13-45); MEAN CORPUSCULAR HEMOGLOBIN 26.5 pg (27.0-33.4); MEAN CORPUSCULAR HGB CONC 31.8 g/dL (32.0-36.0); MEAN CORPUSCULAR VOLUME 84 fl (80-97); MONOCYTES % (AUTO) 7.7 % (3-13); PLATELET COUNT 242 10^3/uL (150-450); RED BLOOD COUNT 4.51 10^6/uL (3.72-5.28); RED CELL DISTRIBUTION WIDTH 16.9 % (11.5-14.0); TOTAL CELLS COUNTED % (AUTO) 100 %; WHITE BLOOD COUNT 8.7 10^3/uL (4.0-10.5)
[2017-09-21 17:55] LABS: INTERNATIONAL RATION (INR) 2.04; PROTHROMBIN TIME 24.1 SEC (11.4-15.4)
[2017-09-21 18:02] LABS: ANION GAP 11 (5-19); BLOOD UREA NITROGEN 22 mg/dL (7-20); CALCIUM 9.9 mg/dL (8.4-10.2); CARBON DIOXIDE 27 mmol/L (22-30); CHLORIDE 104 mmol/L (98-107); GLUCOSE 88 mg/dL (75-110); POTASSIUM 4.3 mmol/L (3.6-5.0); SODIUM 141.9 mmol/L (137-145)
[2017-09-21 18:04] LABS: APPEARANCE,URINE SLIGHTLY-CLOUDY; BILIRUBIN,URINE NEGATIVE (NEGATIVE); COLOR,URINE YELLOW; GLUCOSE, URINE NEGATIVE (NEGATIVE); KETONES,URINE NEGATIVE (NEGATIVE); LEUKOCYTE ESTERASE,URINE SMALL (NEGATIVE); NITRITE,URINE NEGATIVE (NEGATIVE); PROTEIN,URINE NEGATIVE (NEGATIVE); URINE SPECIFIC GRAVITY 1.014; UROBILINOGEN,URINE NEGATIVE mg/dL (<2.0)
== END ==
LOC: OD 15:39
PROVIDERS: ATTEND Family Medicine
DX: I12.9 Hypertensive chronic kidney disease with stage 1 through stage 4 chronic kidney disease, or unspecified chronic kidney disease (principal); N18.2 Chronic kidney disease, stage 2 (mild); H11.31 Conjunctival hemorrhage, right eye
CPT/HCPCS: 36415; 80048; 81001; 85025; 85610

== ENCOUNTER → 2017-09-24 | Outpatient (CLI) | payer MEDICARE, OTHER ==
--- NOTE | 2017-09-24 16:39 | RADIOLOGY REPORT (SQ) ---
EXAM DESCRIPTION: MRI HEAD WITHOUT COMPLETED DATE/TIME: 09/24/2017 9:46 am REASON FOR STUDY: DIZZINESS AND GIDDINESS R42 DIZZINESS AND GIDDINESS COMPARISON: [address] brain exams since 05/15/2015, most recently 08/14/2017 TECHNIQUE: Multiplanar imaging includes non-contrasted T1, T2, FLAIR, and diffusion with ADC map seq uences. Images stored on PACS. LIMITATIONS: None. FINDINGS: There is diffuse hyperostosis interna, most pronounced along the frontal and temporal salvador ons bilaterally. There is dural calcifications/ossification throughout the falx. These findings are similar over the series of exams CSF SPACES: Extra-axial CSF spaces are effaced. There is partial effacement of the sylvian fissures. Diffuse hyperostosis of the inner table of the calvarium is present, similar over the series of exa ms. CEREBRUM: Sulci and gyri normal in size and contour. Normal white matter signal on FLAIR imaging. No evidence of hemorrhage, mass, or extraaxial fluid collection. POSTERIOR FOSSA: No signal alteration. No hemorrhage. No edema, masses or mass effect. Internal ana cristina tory canals, cerebello-pontine angles, mastoids normal. DIFFUSION IMAGING: Negative for acute or sub-acute infarction. ORBITS: No masses. Globes normal. PARANASAL SINUSES: No fluid levels. Mucosa normal. OTHER: No other significant finding. IMPRESSION: The face meta extra-axial CSF spaces from diffuse hyperostosis interna of the bilateral frontal and temporal regions, and the ossification of the falx. Similar compared to studies dating b ack to 2014 CT brain. No MR evidence of acute ischemic change. EVIDENCE OF ACUTE STROKE: NO. TECHNICAL DOCUMENTATION: JOB ID: [id number] [employer]- All Rights Reserved Reading location - IP/workstation name: [email or web address]
== END ==
LOC: RAD 08:28
PROVIDERS: ATTEND Physician Assistant
DX: R42 Dizziness and giddiness (principal)
CPT/HCPCS: 70551

== ENCOUNTER → 2017-11-17 | Outpatient (CLI) | payer MEDICARE, OTHER ==
[2017-11-17 12:12] LABS: HEMATOCRIT 37.3 % (36.0-47.0); HEMOGLOBIN 11.7 g/dL (12.0-15.5); MEAN CORPUSCULAR HEMOGLOBIN 25.4 pg (27.0-33.4); MEAN CORPUSCULAR HGB CONC 31.4 g/dL (32.0-36.0); MEAN CORPUSCULAR VOLUME 81 fl (80-97); PLATELET COUNT 237 10^3/uL (150-450)
[2017-11-17 12:32] LABS: ALANINE AMINOTRANSFERASE 86 U/L (9-52); ALBUMIN 4.1 g/dL (3.5-5.0); ALKALINE PHOSPHATASE 118 U/L (38-126); ANION GAP 10 (5-19); ASPARTATE AMINO TRANSFERASE 53 U/L (14-36); BILIRUBIN,DIRECT 0.3 mg/dL (0.0-0.4); BILIRUBIN,TOTAL 0.5 mg/dL (0.2-1.3); BLOOD UREA NITROGEN 24 mg/dL (7-20); CARBON DIOXIDE 30 mmol/L (22-30); CHLORIDE 106 mmol/L (98-107); GLUCOSE 94 mg/dL (75-110); POTASSIUM 4.5 mmol/L (3.6-5.0); SODIUM 145.5 mmol/L (137-145); TOTAL PROTEIN 6.6 g/dL (6.3-8.2); URIC ACID 8.3 mg/dL (2.5-7.5)
== END ==
LOC: OD 11:42
PROVIDERS: ATTEND Internal Medicine Nephrology
DX: I12.9 Hypertensive chronic kidney disease with stage 1 through stage 4 chronic kidney disease, or unspecified chronic kidney disease (principal); N18.2 Chronic kidney disease, stage 2 (mild); M10.00 Idiopathic gout, unspecified site
CPT/HCPCS: 36415; 80053; 84550; 85027

== ENCOUNTER 2017-12-11 05:57 | Emergency (ER) | payer MEDICARE, OTHER ==
[2017-12-11 06:58] LABS: ABSOLUTE BASOPHILS # (AUTO) 0.1 10^3/uL (0.0-0.2); ABSOLUTE EOSINOPHILS # (AUTO) 0.2 10^3/uL (0.0-0.6); ABSOLUTE LYMPHOCYTES (AUTO) 2.2 10^3/uL (0.5-4.7); ABSOLUTE MONOCYTES (AUTO) 0.6 10^3/uL (0.1-1.4); ABSOLUTE NEUT (AUTO) 5.4 10^3/uL (1.7-8.2); BASOPHILS % (AUTO) 0.8 % (0-2); EOSINOPHILS % (AUTO) 2.8 % (0-6); HEMATOCRIT 38.3 % (36.0-47.0); HEMOGLOBIN 12.1 g/dL (12.0-15.5); LYMPHOCYTES % (AUTO) 25.8 % (13-45); MEAN CORPUSCULAR HEMOGLOBIN 25.4 pg (27.0-33.4); MEAN CORPUSCULAR HGB CONC 31.5 g/dL (32.0-36.0); MEAN CORPUSCULAR VOLUME 81 fl (80-97); MONOCYTES % (AUTO) 6.9 % (3-13); PLATELET COUNT 217 10^3/uL (150-450); RED BLOOD COUNT 4.75 10^6/uL (3.72-5.28); RED CELL DISTRIBUTION WIDTH 16.8 % (11.5-14.0); SEGMENTED NEUTROPHILS % (AUTO) 63.7 % (42-78); TOTAL CELLS COUNTED % (AUTO) 100 %; WHITE BLOOD COUNT 8.5 10^3/uL (4.0-10.5)
[2017-12-11 07:10] LABS: INTERNATIONAL RATION (INR) 2.07; PROTHROMBIN TIME 24.3 SEC (11.4-15.4)
--- NOTE | 2017-12-11 07:42 | EKG REPORT ---
SEVERITY:- ABNORMAL ECG - SINUS RHYTHM FIRST DEGREE AV BLOCK NONSPECIFIC INTRAVENTRICULAR CONDUCTION DELAY PROBABLE ANTEROSEPTAL INFARCT, AGE INDETERM : Confirmed by: Abe Bales MD 11-Dec-2017 07:42:02
--- NOTE | 2017-12-11 08:01 | ER Document Report ---
ED General - General Chief Complaint: Dizziness Stated Complaint: DIZZINESS/ELBOW PAIN Time Seen by Provider: 12/11/17 06:15 Mode of Arrival: Ambulatory Information source: Patient Notes: 67-year-old female history of mechanical valve previous hemorrhagic CVA who still on Coumadin presents with complaints of dizziness since yesterday. Patient denies any fevers or chills denies any actual headache, patient notes that she is having some tingling numbness sensation in the left hand fourth and fifth digits as well as pain in her right elbow. Patient is unsure if her Coumadin level is causing this TRAVEL OUTSIDE OF THE [place] IN LAST 30 DAYS: No - HPI Onset: Yesterday Onset/Duration: Sudden Quality of pain: Achy Severity: Mild Pain Level: 1 Associated symptoms: Other Exacerbated by: Denies Relieved by: Denies Similar symptoms previously: No Recently seen / treated by doctor: No - Related Data Allergies/Adverse Reactions: omega-3 acid ethyl esters Allergy (Verified 12/11/17 06:09) propoxyphene napsylate [From DarvoMacrotherapyt-N 100] Allergy (Verified 12/11/17 06:09) Past Medical History - Social History Smoking Status: Never Smoker Cigarette use (# per day): No Chew tobacco use (# tins/day): No Smoking Education Provided: No Family History: Arthritis, CAD, CVA, Hyperlipidemia, Hypertension, Malignancy, Thyroid Disfunction, Other Patient has suicidal ideation: No Patient has homicidal ideation: No - Past Medical History Cardiac Medical History: Reports: Hx Hypercholesterolemia, Hx Hypertension Endocrine Medical History: Reports: Hx Diabetes Mellitus Type 2, Hx Graves' Disease, Hx Hypothyroidism Renal/ Medical History: Reports: Hx Ectopic . Denies: Hx Peritoneal Dialysis GI Medical History: Reports: Hx Colonoscopy - With polyps removed, Hx Endoscopy Musculoskeltal Medical History: Reports Hx Musculoskeletal Deformity Past Surgical History: Reports: Hx Cardiac Surgery - Mitral valve mechanical, Hx Hysterectomy, Hx Thyroid Surgery - Removed r/t goiter - Immunizations Hx Diphtheria, Pertussis, Tetanus Vaccination: Yes - 2002 Hx Pneumococcal Vaccination: 05/01/10 Review of Systems - Review of Systems Notes: REVIEW OF SYSTEMS: CONSTITUTIONAL : Denies fever, chills, or sweats. Denies recent illness. EENT: Denies eye, ear, throat, or mouth pain or symptoms. Denies nasal or sinus congestion or discharge. Denies throat, tongue, or mouth swelling or difficulty swallowing. CARDIOVASCULAR: Denies chest pain. Denies palpitations or racing or irregular heart beat. Denies ankle edema. RESPIRATORY: Denies cough, cold, or chest congestion. Denies shortness of breath, difficulty breathing, or wheezing. GASTROINTESTINAL: Denies abdominal pain or distention. Denies nausea, vomiting , or diarrhea. Denies blood in vomitus, stools, or per rectum. Denies black, tarry stools. Denies constipation. GENITOURINARY: Denies difficulty urinating, painful urination, burning, frequency, blood in urine, or discharge. FEMALE GENITOURINARY: Denies vaginal bleeding, heavy or abnormal periods, irregular periods. Denies vaginal discharge or odor. MUSCULOSKELETAL: Denies back or neck pain or stiffness. Denies joint pain or swelling. SKIN: Denies rash, lesions or sores. HEMATOLOGIC : Denies easy bruising or bleeding. LYMPHATIC: Denies swollen, enlarged glands. NEUROLOGICAL: Admits to dizziness PSYCHIATRIC: Denies anxiety or stress. Denies depression, suicidal ideation, or homicidal ideation. ALL OTHER SYSTEMS REVIEWED AND NEGATIVE. PHYSICAL EXAMINATION: GENERAL: Well-appearing, well-nourished and in no acute distress. HEAD: Atraumatic, normocephalic. EYES: Pupils equal round and reactive to light, extraocular movements intact, conjunctiva are normal. ENT: Nares patent, oropharynx clear without exudates. Moist mucous membranes. NECK: Normal range of motion, supple without lymphadenopathy LUNGS: Breath sounds clear to auscultation bilaterally and equal. No wheezes rales or rhonchi. HEART: Regular rate and rhythm without murmurs ABDOMEN: Soft, nontender, nondistended abdomen. No guarding, no rebound. No masses appreciated. Female : deferred Musculoskeletal: Normal range of motion, no pitting or edema. No cyanosis. NEUROLOGICAL: Cranial nerves grossly intact. Normal speech, normal gait. Normal sensory, motor exams except for paresthesia left hand fourth and fifth digits PSYCH: Normal mood, normal affect. SKIN: Warm, Dry, normal turgor, no rashes or lesions noted. Dictation was performed using [employer] voice recognition software Physical Exam - Vital signs Vitals: Temp Pulse Resp BP Pulse Ox 98.4 F 64 18 151/75 H 98 12/11/17 06:14 12/11/17 06:14 12/11/17 06:14 12/11/17 06:14 12/11/17 06:14 Course - Re-evaluation Re-evalutation: 12/11/17 08:03 CT head and lab work pending 12/11/17 10:22 Patient was offered admission for these vague complaints, she defers on admission at this time wishes to be treated for UTI and follow-up outpatient with her primary care physician. Given that I do not have any specific source of her complaints I do believe admission is more appropriate but will abide the patient's request After performing a Medical Screening Examination, I estimate there is LOW risk for RUPTURED ESOPHAGUS, PNEUMOTHORAX, PULMONARY EMBOLISM, ACUTE CORONARY SYNDROME, OR THORACIC AORTIC DISSECTION, thus I consider the discharge disposition reasonable. I have reevaluated this patient multiple times and no significant life threatening changes are noted. The patient and I have discussed the diagnosis and risks, and we agree with discharging home with close follow-up. We also discussed returning to the Emergency Department immediately if new or worsening symptoms occur. We have discussed the symptoms which are most concerning (e.g., bloody sputum, worsening pain or shortness of breath) that necessitate immediate return. - Vital Signs Vital signs: Temp Pulse Resp BP Pulse Ox 98.2 F 60 23 H 138/67 H 98 12/11/17 09:01 12/11/17 06:55 12/11/17 09:01 12/11/17 09:01 12/11/17 09:01 - Laboratory Result Diagrams: 12/11/17 06:38 12/11/17 08:20 Laboratory results interpreted by me: 12/11/17 12/11/17 12/11/17 06:38 06:38 08:20 MCH 25.4 L MCHC 31.5 L RDW 16.8 H PT 24.3 H Sodium 146.3 H BUN 21 H Est GFR (Non-Af Amer) 52 L AST 38 H ALT 62 H Creatine Kinase 255 H Ur Leukocyte Esterase 12/11/17 09:57 MCH MCHC RDW PT Sodium BUN Est GFR (Non-Af Amer) AST ALT Creatine Kinase Ur Leukocyte Esterase LARGE H Discharge - Discharge Clinical Impression: Dizziness UTI (urinary tract infection) Qualifiers: Urinary tract infection type: acute cystitis Hematuria presence: without hematuria Qualified Code(s): N30.00 - Acute cystitis without hematuria Condition: Stable Disposition: HOME, SELF-CARE Instructions: Urinary Tract Infection ([facility]), Dizziness ([facility]) Prescriptions: Cephalexin Monohydrate [Keflex 500 mg Capsule] 500 mg PO BID 7 Days capsule Referrals: ORLANDO GAVIN PA [Primary Care Provider] - Follow up as needed
--- NOTE | 2017-12-11 08:13 | RADIOLOGY REPORT (SQ) ---
EXAM DESCRIPTION: CT HEAD WITHOUT COMPLETED DATE/TIME: 12/11/2017 6:25 am REASON FOR STUDY: hx hemorrhagic cva, headache COMPARISON: 08/14/2017 TECHNIQUE: Axial images acquired through the brain without intravenous contrast. Images reviewed wi th bone, brain and subdural windows. Images stored on PACS. All CT scanners at this facility use dose modulation, iterative reconstruction, and/or weight based d osing when appropriate to reduce radiation dose to as low as reasonably achievable (ALARA). [facility]: Dose Right [facility]: CareDose [facility]: Dose Right [facility]: Teradose 4D [facility]: Voltaic Coatings RADIATION DOSE: mGy. LIMITATIONS: None. FINDINGS: VENTRICLES: Normal size and contour. CEREBRUM: No masses. No hemorrhage. No midline shift. No evidence for acute infarction. Normal gra y/white matter differentiation. No areas of low density in the white matter. CEREBELLUM: No masses. No hemorrhage. No alteration of density. No evidence for acute infarction. EXTRAAXIAL SPACES: No fluid collections. No masses. ORBITS AND GLOBE: No intra- or extraconal masses. Normal contour of globe without masses. CALVARIUM: No fracture. Stable degree of diffuse hyperostosis interna. PARANASAL SINUSES: Stable chronic left maxillary sinus disease. Otherwise clear. SOFT TISSUES: No mass or hematoma. OTHER: No other significant finding. IMPRESSION: NO ACUTE INTRACRANIAL PROCESS. NO SIGNIFICANT CHANGE FROM PRIOR STUDY. EVIDENCE OF ACUTE STROKE: NO. COMMENT: Quality ID # [id number]: Final reports with documentation of one or more dose reduction techniques (e.g., Automated exposure control, adjustment of the mA and/or kV according to patient size, use of iterative reconstruction technique) TECHNICAL DOCUMENTATION: JOB ID: [id number]- All Rights Reserved Reading location - IP/workstation name: [email or web address]
[2017-12-11 08:54] LABS: ALANINE AMINOTRANSFERASE 62 U/L (9-52); ALBUMIN 4.2 g/dL (3.5-5.0); ALKALINE PHOSPHATASE 118 U/L (38-126); ANION GAP 9 (5-19); ASPARTATE AMINO TRANSFERASE 38 U/L (14-36); BILIRUBIN,DIRECT 0.3 mg/dL (0.0-0.4); BILIRUBIN,TOTAL 0.7 mg/dL (0.2-1.3); BLOOD UREA NITROGEN 21 mg/dL (7-20); CARBON DIOXIDE 30 mmol/L (22-30); CHLORIDE 107 mmol/L (98-107); CREATINE KINASE 255 U/L (30-135); GLUCOSE 100 mg/dL (75-110); SODIUM 146.3 mmol/L (137-145)
[2017-12-11 09:05] LABS: CREATINE KINASE MB 1.69 ng/mL (<4.55)
[2017-12-11 09:12] LABS: TROPONIN I < 0.012 ng/mL
[2017-12-11 10:11] LABS: APPEARANCE,URINE SLIGHTLY-CLOUDY; BILIRUBIN,URINE NEGATIVE (NEGATIVE); COLOR,URINE YELLOW; GLUCOSE, URINE NEGATIVE (NEGATIVE); KETONES,URINE NEGATIVE (NEGATIVE); LEUKOCYTE ESTERASE,URINE LARGE (NEGATIVE); NITRITE,URINE NEGATIVE (NEGATIVE); PROTEIN,URINE NEGATIVE (NEGATIVE); URINE SPECIFIC GRAVITY 1.021; UROBILINOGEN,URINE NEGATIVE mg/dL (<2.0)
[2017-12-11 10:46] VITALS: BP 157/77
== END 2017-12-11 10:45 | disposition home or self-care (01) ==
LOC: ER 05:57
DX: N30.00 Acute cystitis without hematuria (principal); R42 Dizziness and giddiness; E78.00 Pure hypercholesterolemia, unspecified; I10 Essential (primary) hypertension; Z86.73 Personal history of transient ischemic attack (TIA), and cerebral infarction without residual deficits; Z95.2 Presence of prosthetic heart valve; Z79.01 Long term (current) use of anticoagulants; Z90.710 Acquired absence of both cervix and uterus
CPT/HCPCS: 36415; 70450; 80053; 81001; 82550; 82553; 84484; 85025; 85610; 93005; 93010; 99284

== ENCOUNTER 2017-12-28 00:54 | Emergency (ER) | payer MEDICARE, OTHER ==
--- NOTE | 2017-12-28 02:23 | RADIOLOGY REPORT (SQ) ---
EXAM DESCRIPTION: CT of the head without contrast CLINICAL HISTORY: headache, blurry vision, Hx brain bleed COMPARISON: None available TECHNIQUE: Axial CT of the head obtained from the skull apex to the skull base without contrast. FINDINGS: No acute intracranial hemorrhage identified. No mass, mass effect, shift of the midline, abnormal extra-axial fluid collection or CT evidence of acute ischemic change identified. The ventricular system is unremarkable. No acute abnormalities of the supratentorial white matter, basal ganglia, cerebellum, or brainstem. The visualized paranasal sinuses and the mastoids are clear. Diffuse hyperostosis interna is unchanged. No skull fracture identified. Visualized orbits and globes are unremarkable. DLP: 1070.38 mGy-cm IMPRESSION: 1. No acute intracranial abnormality identified. Stable appearance of the head. This exam was performed according to our departmental dose-optimization program, which includes automated exposure control, adjustment of the mA and/or kV according to patient size and/or use of iterative reconstruction technique.
[2017-12-28 02:41] VITALS: BP 178/74
--- NOTE | 2017-12-28 02:42 | ER Document Report ---
ED Blood Pressure Problem - General Chief Complaint: High Blood Pressure Stated Complaint: BLOOD PRESSURE PROBLEMS Time Seen by Provider: 12/28/17 01:31 Notes: The patient is a 67-year-old female, past medical history hypertension, anxiety , history of hemorrhagic CVA, presents after she took her blood pressure at home and it was 201/98. She normally takes her blood pressure at home before she goes to bed and took all her blood pressure medications and Ativan earlier in the night.. She has clonidine for when her blood pressure is high and she took 0.4 mg prior to arrival. 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 She denies headache, focal weakness, numbness, tingling, neck stiffness, chest pain or shortness of breath. TRAVEL OUTSIDE OF THE [place] IN LAST 30 DAYS: No - Related Data Allergies/Adverse Reactions: omega-3 acid ethyl esters Allergy (Verified 12/11/17 06:09) propoxyphene napsylate [From Darvocet-N 100] Allergy (Verified 12/11/17 06:09) Past Medical History - General Information source: Patient - Social History Smoking Status: Unknown if Ever Smoked Family History: Arthritis, CAD, CVA, Hyperlipidemia, Hypertension, Malignancy, Thyroid Disfunction, Other Patient has suicidal ideation: No Patient has homicidal ideation: No - Past Medical History Cardiac Medical History: Reports: Hx Hypercholesterolemia, Hx Hypertension Endocrine Medical History: Reports: Hx Diabetes Mellitus Type 2, Hx Graves' Disease, Hx Hypothyroidism Renal/ Medical History: Reports: Hx Ectopic . Denies: Hx Peritoneal Dialysis GI Medical History: Reports: Hx Colonoscopy - With polyps removed, Hx Endoscopy Musculoskeltal Medical History: Reports Hx Musculoskeletal Deformity Past Surgical History: Reports: Hx Cardiac Surgery - Mitral valve mechanical, Hx Hysterectomy, Hx Thyroid Surgery - Removed r/t goiter - Immunizations Hx Diphtheria, Pertussis, Tetanus Vaccination: Yes - 2002 Hx Pneumococcal Vaccination: 05/01/10 Review of Systems - Review of Systems Notes: REVIEW OF SYSTEMS: CONSTITUTIONAL: -fevers, -chills EENT: -eye pain, -difficulty swallowing, -nasal congestion, +blurry vision CARDIOVASCULAR: -chest pain, -syncope. RESPIRATORY: -cough, -SOB GASTROINTESTINAL: -abdominal pain, -nausea, -vomiting, -diarrhea GENITOURINARY: -dysuria, -hematuria MUSCULOSKELETAL: -back pain, -neck pain SKIN: -rash or skin lesions. HEMATOLOGIC: -easy bruising or bleeding. LYMPHATIC: -swollen, enlarged glands. NEUROLOGICAL: -altered mental status or loss of consciousness, +headache, - neurologic symptoms PSYCHIATRIC: -anxiety, -depression. ALL OTHER SYSTEMS REVIEWED AND NEGATIVE. Physical Exam - Vital signs Vitals: Temp Pulse Resp BP Pulse Ox 97.8 F 61 20 197/68 H 97 12/28/17 01:03 12/28/17 01:03 12/28/17 01:03 12/28/17 01:03 12/28/17 01:03 - Notes Notes: PHYSICAL EXAMINATION: GENERAL: Well-appearing, well-nourished and in no acute distress. HEAD: Atraumatic, normocephalic. EYES: Pupils equal round and reactive to light, extraocular movements intact, sclera anicteric, conjunctiva are normal. ENT: nares patent, oropharynx clear without exudates. Moist mucous membranes. NECK: Normal range of motion, supple without lymphadenopathy LUNGS: Breath sounds clear to auscultation bilaterally and equal. No wheezes rales or rhonchi. HEART: Regular rate and rhythm without murmurs ABDOMEN: Soft, nontender, normoactive bowel sounds. No guarding, no rebound. No masses appreciated. EXTREMITIES: Normal range of motion, no pitting or edema. No cyanosis. NEUROLOGICAL: Cranial nerves grossly intact. Normal speech, normal gait. Normal sensory and motor exams. PSYCH: Normal mood, normal affect. SKIN: Warm, Dry, normal turgor, no rashes or lesions noted. Course - Re-evaluation Re-evalutation: Patient appears very well and has no focal neuro symptoms. She already took 0.4 mg clonidine prior to arrival and her blood pressure decreased to 178/74. She is asymptomatic at this time and said her mild blurry vision that she had earlier in the night resolved. Head CT performed due to history of hemorrhagic stroke, but this was negative. She will follow with her primary care physician for further adjustments of her blood pressure medications. - Vital Signs Vital signs: Temp Pulse Resp BP Pulse Ox 97.8 F 61 20 197/68 H 97 12/28/17 01:03 12/28/17 01:03 12/28/17 01:03 12/28/17 01:03 12/28/17 01:03 - Diagnostic Test Radiology reviewed: Image reviewed, Reports reviewed Radiology results interpreted by me: Head CT: NAD Discharge - Discharge Clinical Impression: Hypertension Qualifiers: Hypertension type: unspecified Qualified Code(s): I10 - Essential (primary) hypertension Condition: Stable Disposition: HOME, SELF-CARE Additional Instructions: HIGH BLOOD PRESSURE REQUIRING TREATMENT: Your blood pressure is high. This is called "hypertension." Today's reading was 179/93 (normal is less than 140/90). Your history and exam suggest that this is not a temporary problem. You need treatment of your blood pressure. If left untreated, high blood pressure greatly increases your risk of heart attack and stroke. Please don't ignore this problem. If you have blood pressure medicine but aren't using it regularly, start taking it again. Some simple things you can do to help are: Get some aerobic exercise for at least 20 minutes on a daily basis. (See your doctor before beginning any new exercise program.) Eat a low-fat diet. Lose excess weight. Avoid salty foods and avoid adding salt to any of the foods you eat. Avoid diet pills, decongestants, "energizing" herbs, and other medicines that elevate blood pressure. There are many different medicines that treat blood pressure. If your medication causes unpleasant side effects, call your doctor. There are others you can try. Treating hypertension is a life-long investment in your health. CLONIDINE (CATAPRES): Clonidine is blood-pressure medicine. It works in your brain, making the nervous system relax the blood vessels. This medicine can also be used for symptoms of narcotic withdrawal. Clonidine frequently causes dry mouth, drowsiness, and dizziness. These symptoms go away as you continue to use it. Rest for the first couple of days. Don't drive or use machinery until you're back to normal. Never stop clonidine suddenly! There can be a "rebound" severe increase in blood pressure, headache, and agitation. Be sure you always have enough of the medicine. Call the doctor if you have any new symptoms such as skin rash, weakness, severe lightheadedness, chest pain, headache, or depression. BETA BLOCKERS: You have been given a prescription for a beta-dimitry medication. This class of drugs is used for many purposes, including angina, high blood pressure , heart rhythm disturbances, tremors, and migraines. The medication works by interfering with the effects of the sympathetic nervous system (the sympathetic system has adrenaline-like effects of constricting blood vessels, increasing heart rate, and increasing blood pressure). This medication is usually well-tolerated. However, some patients have side effects such as fatigue, depression, or dizziness. Persons with asthma may develop wheezing from this medicine. Contact your doctor if you are bothered by any side effects. Do not take any cold or allergy medication without first consulting your doctor. Do not stop the medicine without consulting your doctor, as a "rebound " worsening of your condition can result. FOLLOW-UP CARE: If you have been referred to a physician for follow-up care, call the physician s office for an appointment as you were instructed or within the next two days. If you experience worsening or a significant change in your symptoms, notify the physician immediately or return to the Emergency Department at any time for re-evaluation. Forms: Elevated Blood Pressure Referrals: DONNIE FRIEDMAN MD [Primary Care Provider] - Follow up as needed
== END 2017-12-28 02:47 | disposition home or self-care (01) ==
LOC: ER 00:54
DX: I10 Essential (primary) hypertension (principal); R51 Headache; F41.9 Anxiety disorder, unspecified; E11.9 Type 2 diabetes mellitus without complications; E03.9 Hypothyroidism, unspecified; Z90.710 Acquired absence of both cervix and uterus; Z86.73 Personal history of transient ischemic attack (TIA), and cerebral infarction without residual deficits
CPT/HCPCS: 70450; 99284

== ENCOUNTER → 2018-01-06 | Outpatient (CLI) | payer MEDICARE, OTHER ==
--- NOTE | 2018-01-06 12:29 | RADIOLOGY REPORT (SQ) ---
EXAM DESCRIPTION: U/S ABDOMEN COMPLETE W/DOPPLER COMPLETED DATE/TIME: 01/06/2018 10:46 am REASON FOR STUDY: ABDOMINAL DISENTION R14.0 ABDOMINAL DISTENSION (GASEOUS) COMPARISON: None. TECHNIQUE: Dynamic and static grayscale images acquired of the abdomen and recorded on PACS. Melinao dianna selected color Doppler and spectral images recorded. LIMITATIONS: None. FINDINGS: PANCREAS: No masses. Visualized pancreatic duct normal caliber. LIVER: No masses. Echotexture normal. LIVER VASCULATURE: Normal directional flow of the main portal vein and hepatic veins. GALLBLADDER: No stones. A small 8 mm in diameter echogenic focus is identified most consistent with a gallbladder polyp. Normal wall thickness. No pericholecystic fluid. ULTRASOUND-DETECTED MILLER'S SIGN: Negative. INTRAHEPATIC DUCTS AND COMMON DUCT: CBD and intrahepatic ducts normal caliber. No filling defects. INFERIOR VENA CAVA: Normal flow. AORTA: No aneurysm. RIGHT KIDNEY: 11.7 cm in length. Normal echogenicity. No solid or suspicious masses. No hydron ephrosis. No calcifications. LEFT KIDNEY: 11.1 cm in length. Normal echogenicity. No solid or suspicious masses. No hydrone phrosis. No calcifications. SPLEEN: Normal size. No solid masses. PERITONEAL AND PLEURAL SPACES: No ascites or effusions. OTHER: No other significant finding. IMPRESSION: Findings consistent with a small gallbladder polyp. No other significant intra-abdomina l abnormalities were identified. Other findings as noted above TECHNICAL DOCUMENTATION: JOB ID: [id number] [employer]- All Rights Reserved Reading location - IP/workstation name: [email or web address]
== END ==
LOC: RAD 10:12
PROVIDERS: ATTEND Physician Assistant
DX: K82.4 Cholesterolosis of gallbladder (principal); R14.0 Abdominal distension (gaseous)
CPT/HCPCS: 76700; 93976

== ENCOUNTER 2018-05-24 06:05 | Emergency (ER) | payer MEDICARE, OTHER ==
[2018-05-24] MEDS ORDERED: CLONIDINE HCL 0.1 MG TABLET PO ONE ×2 (06:46→11:09)
--- NOTE | 2018-05-24 06:46 | ER Document Report ---
ED General - General Chief Complaint: Shortness Of Breath Stated Complaint: BLOOD PRESSURE PROBLEMS Time Seen by Provider: 05/24/18 06:23 Notes: This is a 67-year-old -[place] female who presented to the emergency department complaining of blood pressure and a weird sensation earlier this morning. Woke up and took her blood pressure and it was high. Took her clonidine. Patient was concerned because she has had valvular heart surgery in the past for her mitral valve. Followed by Dr. Carter. Denies any chest pain. States that she had a gasping sensation she was concerned. Was recently stopped from taking Keflex as she was on it for several years for chronic UTI. States that she does not think she has a UTI because her feet are not burning. She also states that she has been not feeling well and dizzy and is concerned that she might have a head bleed. States that she has had an aneurysm in the past. TRAVEL OUTSIDE OF THE [place] IN LAST 30 DAYS: No - HPI Onset: Just prior to arrival Severity: Mild Pain Level: 0 - Related Data Allergies/Adverse Reactions: omega-3 acid ethyl esters Allergy (Verified 05/24/18 07:54) propoxyphene napsylate [From Darvocet-N 100] Allergy (Verified 05/24/18 07:54) Past Medical History - General Information source: Patient - Social History Smoking Status: Smoker,Current Status Unk Frequency of alcohol use: None Drug Abuse: None Lives with: Alone Family History: Arthritis, CAD, CVA, Hyperlipidemia, Hypertension, Malignancy, Thyroid Disfunction, Other - Past Medical History Cardiac Medical History: Reports: Hx Hypercholesterolemia, Hx Hypertension Endocrine Medical History: Reports: Hx Diabetes Mellitus Type 2, Hx Graves' Disease, Hx Hypothyroidism Renal/ Medical History: Reports: Hx Ectopic . Denies: Hx Peritoneal Dialysis GI Medical History: Reports: Hx Colonoscopy - With polyps removed, Hx Endoscopy Musculoskeletal Medical History: Reports Hx Musculoskeletal Deformity Past Surgical History: Reports: Hx Cardiac Surgery - Mitral valve mechanical, Hx Hysterectomy, Hx Thyroid Surgery - Removed r/t goiter - Immunizations Hx Diphtheria, Pertussis, Tetanus Vaccination: Yes - 2002 Hx Pneumococcal Vaccination: 05/01/10 Review of Systems - Review of Systems Notes: Constitutional: denies: Chills, Diaphoresis, Fever, Malaise, Weakness EENT: denies: Eye discharge, Blurred vision, Tearing, Double vision, Nose congestion, Nose discharge, Throat swelling, Mouth pain Cardiovascular: denies: Palpitations, Heart racing, Orthopnea, Dyspnea, Chest pain Respiratory: denies: Cough, Hurts to breathe, Wheezing, Shortness of breath Gastrointestinal: denies: Abdominal pain, Diarrhea, Nausea, Vomiting, Black stools, bright red blood in stool Genitourinary: denies: Burning, Dysuria, Discharge, Frequency, Flank pain, Hematuria Musculoskeletal: denies: Joint pain, Joint swelling, Muscle pain, Muscle stiffness, back pain Hematologic/Lymphatic: denies: Anemia, Easy bleeding, Easy bruising, Blood clots Neurological/Psychological: denies: Confusion, Dementia, Depression, Loss of consciousness Skin: No lesions, no masses, no skin breakdown, no abscesses Physical Exam - Vital signs Vitals: Temp Pulse Resp BP Pulse Ox 97.7 F 58 L 18 134/45 H 98 05/24/18 06:06 05/24/18 06:06 05/24/18 06:06 05/24/18 06:06 05/24/18 06:06 Interpretation: Normal - General General appearance: Appears well, Alert - HEENT Head: Normocephalic, Atraumatic Eyes: Normal Pupils: PERRL - Respiratory Respiratory status: No respiratory distress Chest status: Nontender Breath sounds: Normal Chest palpation: Normal - Cardiovascular Rhythm: Regular Heart sounds: Normal auscultation Murmur: No - Patient does have an audible mechanical click - Abdominal Inspection: Normal Distension: No distension Bowel sounds: Normal Tenderness: Nontender Organomegaly: No organomegaly - Back Back: Normal, Nontender - Extremities General upper extremity: Normal inspection, Nontender, Normal color, Normal ROM , Normal temperature General lower extremity: Normal inspection, Nontender, Normal color, Normal ROM , Normal temperature, Normal weight bearing. No: Crista's sign - Neurological Neuro grossly intact: Yes Cognition: Normal Orientation: AAOx4 [place] Coma Scale Eye Opening: Spontaneous Ro Coma Scale Verbal: Oriented Ro Coma Scale Motor: Obeys Commands [place] Coma Scale Total: 15 Speech: Normal Cranial nerves: Normal. No: Facial palsy, Gaze palsy Cerebellar coordination: Normal Motor strength normal: LUE, RUE, LLE, RLE Additional motor exam normals: Equal leather craftsman. No: Pronator drift Sensory: Normal - Psychological Associated symptoms: Normal affect, Normal mood - Skin Skin Temperature: Warm Skin Moisture: Dry Skin Color: Normal Course - Re-evaluation Re-evalutation: 05/24/18 11:02 Laboratory 05/24/18 05/24/18 05/24/18 07:30 07:30 07:30 WBC 8.1 RBC 4.41 Hgb 11.7 L Hct 36.6 MCV 83 MCH 26.6 L MCHC 32.1 RDW 16.8 H Plt Count 254 Seg Neutrophils % 65.1 Lymphocytes % 25.6 Monocytes % 6.0 Eosinophils % 2.4 Basophils % 0.9 Absolute Neutrophils 5.3 Absolute Lymphocytes 2.1 Absolute Monocytes 0.5 Absolute Eosinophils 0.2 Absolute Basophils 0.1 PT INR Sodium 140.9 Potassium 3.9 Chloride 102 Carbon Dioxide 29 Anion Gap 10 BUN 18 Creatinine 1.15 Est GFR ( Amer) 57 L Est GFR (Non-Af Amer) 47 L Glucose 113 H Calcium 9.9 Total Bilirubin 0.6 Direct Bilirubin 0.2 Neonat Total Bilirubin Not Reportable Neonat Direct Bilirubin Not Reportable Neonat Indirect Bili Not Reportable AST 23 ALT 20 Alkaline Phosphatase 132 H Creatine Kinase 243 H CK-MB (CK-2) 2.01 Troponin I < 0.012 NT-Pro-B Natriuret Pep 452 Total Protein 7.3 Albumin 4.4 Urine Color Urine Appearance Urine pH Ur Specific [place] Urine Protein Urine Glucose (UA) Urine Ketones Urine Blood Urine Nitrite Urine Bilirubin Urine Urobilinogen Ur Leukocyte Esterase Urine WBC (Auto) Squamous Epi Cells Auto Urine Mucus (Auto) Urine Ascorbic Acid 05/24/18 05/24/18 07:30 07:30 WBC RBC Hgb Hct MCV MCH MCHC RDW Plt Count Seg Neutrophils % Lymphocytes % Monocytes % Eosinophils % Basophils % Absolute Neutrophils Absolute Lymphocytes Absolute Monocytes Absolute Eosinophils Absolute Basophils PT 19.2 H INR 1.54 Sodium Potassium Chloride Carbon Dioxide Anion Gap BUN Creatinine Est GFR ( Amer) Est GFR (Non-Af Amer) Glucose Calcium Total Bilirubin Direct Bilirubin Neonat Total Bilirubin Neonat Direct Bilirubin Neonat Indirect Bili AST ALT Alkaline Phosphatase Creatine Kinase CK-MB (CK-2) Troponin I NT-Pro-B Natriuret Pep Total Protein Albumin Urine Color COLORLESS Urine Appearance CLEAR Urine pH 6.0 Ur Specific [place] 1.005 Urine Protein NEGATIVE Urine Glucose (UA) NEGATIVE Urine Ketones NEGATIVE Urine Blood NEGATIVE Urine Nitrite NEGATIVE Urine Bilirubin NEGATIVE Urine Urobilinogen NEGATIVE Ur Leukocyte Esterase NEGATIVE Urine WBC (Auto) 1 Squamous Epi Cells Auto 2 Urine Mucus (Auto) RARE Urine Ascorbic Acid NEGATIVE Chest X-Ray 05/24/18 06:45 IMPRESSION: Clear lungs. Head CT 05/24/18 09:46 IMPRESSION: NORMAL BRAIN CT WITHOUT CONTRAST. EVIDENCE OF ACUTE STROKE: NO. 05/24/18 11:09 Patient's blood pressures is slightly elevated but coming down. Patient says that she normally takes clonidine of the 0.2 mg dosage. I only gave her 0.1 so we will give her another dose here. Did not want to get too aggressive on treating this blood pressure. Her head CT and other workup is unremarkable. I have advised her to follow-up with Dr. Carter for her blood pressure management. - Vital Signs Vital signs: Temp Pulse Resp BP Pulse Ox 97.7 F 58 L 22 H 197/75 H 100 05/24/18 06:06 05/24/18 06:06 05/24/18 08:01 05/24/18 08:01 05/24/18 08:01 - Laboratory Result Diagrams: 05/24/18 07:30 05/24/18 07:30 Laboratory results interpreted by me: 05/24/18 05/24/18 05/24/18 07:30 07:30 07:30 Hgb 11.7 L MCH 26.6 L RDW 16.8 H PT 19.2 H Est GFR ( Amer) 57 L Est GFR (Non-Af Amer) 47 L Glucose 113 H Alkaline Phosphatase 132 H Creatine Kinase 243 H - EKG Interpretation by [place] EKG shows normal: Sinus rhythm, [place], Intervals, QRS Complexes, ST-T Waves When compared to previous EKG there are: No significant change Discharge - Discharge Clinical Impression: Hypertension Qualifiers: Hypertension type: unspecified Qualified Code(s): I10 - Essential (primary) hypertension Condition: Good Disposition: HOME, SELF-CARE Instructions: High Blood Pressure, Requiring Treatment ([facility]) Additional Instructions: Continue your regular medications and you may take the clonidine as you have been prescribed. Please call Dr. Carter and schedule a follow-up appointment. Return for any worsening symptoms or concerns. Prescriptions: Clonidine HCl 0.2 mg PO Q8H PRN 10 Days #30 tablet PRN Reason: Referrals: ARISTIDES,SUMA, PA [NO LOCAL MD] - Follow up as needed SNOW CARTER MD [ACTIVE STAFF] - Follow up tomorrow
--- NOTE | 2018-05-24 07:42 | RADIOLOGY REPORT (SQ) ---
CLINICAL HISTORY: sob COMPARISON: None. TECHNIQUE: XR CHEST 1 VIEW 05/24/2018 6:45 AM CDT FINDINGS: Cardiac silhouette is enlarged. Sternotomy and valve replacement. Lungs are clear without consolidation, atelectasis, mass or edema. There is no pleural effusion. There is no pneumothorax. There are no acute osseous findings. IMPRESSION: Clear lungs.
[2018-05-24 08:02] LABS: ABSOLUTE BASOPHILS # (AUTO) 0.1 10^3/uL (0.0-0.2); ABSOLUTE EOSINOPHILS # (AUTO) 0.2 10^3/uL (0.0-0.6); ABSOLUTE LYMPHOCYTES (AUTO) 2.1 10^3/uL (0.5-4.7); ABSOLUTE MONOCYTES (AUTO) 0.5 10^3/uL (0.1-1.4); ABSOLUTE NEUT (AUTO) 5.3 10^3/uL (1.7-8.2); BASOPHILS % (AUTO) 0.9 % (0-2); EOSINOPHILS % (AUTO) 2.4 % (0-6); HEMATOCRIT 36.6 % (36.0-47.0); HEMOGLOBIN 11.7 g/dL (12.0-15.5); LYMPHOCYTES % (AUTO) 25.6 % (13-45); MEAN CORPUSCULAR HEMOGLOBIN 26.6 pg (27.0-33.4); MEAN CORPUSCULAR HGB CONC 32.1 g/dL (32.0-36.0); MEAN CORPUSCULAR VOLUME 83 fl (80-97); PLATELET COUNT 254 10^3/uL (150-450); RED BLOOD COUNT 4.41 10^6/uL (3.72-5.28); RED CELL DISTRIBUTION WIDTH 16.8 % (11.5-14.0); SEGMENTED NEUTROPHILS % (AUTO) 65.1 % (42-78); TOTAL CELLS COUNTED % (AUTO) 100 %; WHITE BLOOD COUNT 8.1 10^3/uL (4.0-10.5)
[2018-05-24 08:07] LABS: ALANINE AMINOTRANSFERASE 20 U/L (9-52); ALBUMIN 4.4 g/dL (3.5-5.0); ALKALINE PHOSPHATASE 132 U/L (38-126); ANION GAP 10 (5-19); ASPARTATE AMINO TRANSFERASE 23 U/L (14-36); BILIRUBIN,DIRECT 0.2 mg/dL (0.0-0.4); BILIRUBIN,TOTAL 0.6 mg/dL (0.2-1.3); BLOOD UREA NITROGEN 18 mg/dL (7-20); CALCIUM 9.9 mg/dL (8.4-10.2); CARBON DIOXIDE 29 mmol/L (22-30); CHLORIDE 102 mmol/L (98-107); CREATINE KINASE 243 U/L (30-135); GLUCOSE 113 mg/dL (75-110); POTASSIUM 3.9 mmol/L (3.6-5.0); SODIUM 140.9 mmol/L (137-145); TOTAL PROTEIN 7.3 g/dL (6.3-8.2)
[2018-05-24 08:11] LABS: INTERNATIONAL RATION (INR) 1.54; PROTHROMBIN TIME 19.2 SEC (11.4-15.4)
[2018-05-24 08:18] LABS: CREATINE KINASE MB 2.01 ng/mL (<4.55); NT PRO BNP 452 pg/mL (5-900)
[2018-05-24 08:19] LABS: TROPONIN I < 0.012 ng/mL
[2018-05-24 08:53] LABS: APPEARANCE,URINE CLEAR; BILIRUBIN,URINE NEGATIVE (NEGATIVE); COLOR,URINE COLORLESS; GLUCOSE, URINE NEGATIVE (NEGATIVE); KETONES,URINE NEGATIVE (NEGATIVE); LEUKOCYTE ESTERASE,URINE NEGATIVE (NEGATIVE); NITRITE,URINE NEGATIVE (NEGATIVE); PROTEIN,URINE NEGATIVE (NEGATIVE); URINE SPECIFIC GRAVITY 1.005; UROBILINOGEN,URINE NEGATIVE mg/dL (<2.0)
--- NOTE | 2018-05-24 10:46 | EKG REPORT ---
SEVERITY:- ABNORMAL ECG - SINUS RHYTHM NONSPECIFIC INTRAVENTRICULAR CONDUCTION DELAY ABNRM R PROG, CONSIDER ASMI OR LEAD PLACEMENT : Confirmed by: Shoshana Johnson 24-May-2018 10:45:06
--- NOTE | 2018-05-24 10:46 | RADIOLOGY REPORT (SQ) ---
EXAM DESCRIPTION: CT HEAD WITHOUT COMPLETED DATE/TIME: 05/24/2018 10:20 am REASON FOR STUDY: dizziness, hx of aneurysm COMPARISON: 12/28/2017 TECHNIQUE: Axial images acquired through the brain without intravenous contrast. Images reviewed wi th bone, brain and subdural windows. Additional sagittal and coronal reconstructions were generated. Images stored on PACS. All CT scanners at this facility use dose modulation, iterative reconstruction, and/or weight based d osing when appropriate to reduce radiation dose to as low as reasonably achievable (ALARA). [facility]: Dose Right [facility]: CareDose [facility]: Dose Right [facility]: Teradose 4D [facility]: Smart StatAce RADIATION DOSE: CT Rad equipment meets quality standard of care and radiation dose reduction techniq ues were employed. CTDIvol: 53.2 mGy. DLP: 1070 mGy-cm. mGy. LIMITATIONS: None. FINDINGS: VENTRICLES: Normal size and contour. CEREBRUM: No masses. No hemorrhage. No midline shift. No evidence for acute infarction. Normal gra y/white matter differentiation. No areas of low density in the white matter. CEREBELLUM: No masses. No hemorrhage. No alteration of density. No evidence for acute infarction. EXTRAAXIAL SPACES: No fluid collections. No masses. ORBITS AND GLOBE: No intra- or extraconal masses. Normal contour of globe without masses. CALVARIUM: No fracture. PARANASAL SINUSES: No fluid levels. SOFT TISSUES: No mass or hematoma. OTHER: No other significant finding. IMPRESSION: NORMAL BRAIN CT WITHOUT CONTRAST. EVIDENCE OF ACUTE STROKE: NO. COMMENT: Quality ID # [id number]: Final reports with documentation of one or more dose reduction techniques (e.g., Automated exposure control, adjustment of the mA and/or kV according to patient size, use of iterative reconstruction technique) TECHNICAL DOCUMENTATION: JOB ID: [id number] [employer]- All Rights Reserved Reading location - IP/workstation name: [email or web address]
[2018-05-24 11:14] VITALS: BP 170/79
== END 2018-05-24 11:22 | disposition home or self-care (01) ==
LOC: ER 06:05
DX: R06.02 Shortness of breath (principal); R42 Dizziness and giddiness; F17.200 Nicotine dependence, unspecified, uncomplicated; I10 Essential (primary) hypertension; E11.9 Type 2 diabetes mellitus without complications
CPT/HCPCS: 93005; 99285; 36415; 87086; 82553; 82550; 85025; 85610; 80053; 81001; 84484; 83880; 71045; 70450; 93010; A9270

== ENCOUNTER → 2018-07-18 | Outpatient (CLI) | payer MEDICARE, OTHER ==
--- NOTE | 2018-07-18 15:22 | RADIOLOGY REPORT (SQ) ---
EXAM DESCRIPTION: CT SOFT TISSUE NECK WITH COMPLETED DATE/TIME: 07/18/2018 2:53 pm REASON FOR STUDY: R13.10 DYSPHAGIA, UNSPECIFIED R22.1 LOCALIZED SWELLING, MASS AND LUMP, NECK R07.9 CHEST PAIN, UNSPECIFIED R13.10 DYSPHAGIA, UNSPECIFIED R22.1 LOCALIZED SWELLING, MASS AND LUMP, NEC K COMPARISON: CT brain 12/28/2017, 12/11/2017, 05/15/2015 MRI brain 09/24/2017 TECHNIQUE: Post IV contrasted scanning from skull base through lung apices with review of bone, soft tissue and lung windows. Reconstructed coronal and sagittal MPR images reviewed. All images stored on PACS. All CT scanners at this facility use dose modulation, iterative reconstruction, and/or weight based d osing when appropriate to reduce radiation dose to as low as reasonably achievable (ALARA). [facility]: Dose Right [facility]: CareDose [facility]: Dose Right [facility]: Teradose 4D [facility]: Netpulse CONTRAST TYPE AND DOSE: 80.5 mL IV Omnipaque 350- low osmolar. RENAL FUNCTION: Creatinine 1.2 RADIATION DOSE: 17.3 mGy . LIMITATIONS: None. FINDINGS: SKULL BASE: Intact. Benign hyperostosis along the inner table of the calvarium is unchang ed. MAJOR SALIVARY GLANDS: On the left side, patient is post partial resection of the parotid glands, the majority of the superficial lobe left parotid gland has been resected. No residual left parotid les ion is identified. Right parotid gland, bilateral submandibular glands, sublingual glands are unremarkable. LYMPHADENOPATHY: No adenopathy. MUCOSAL MASSES OR ASYMMETRY: No mucosal masses or asymmetry. LARYNX/CORDS: No abnormal findings. VASCULAR STRUCTURES: The major vessels are patent. LUNG APICES: Clear. BONES: Intact. THYROID: A tiny residua of possible thyroid tissue is present in the left thyroid bed, 1.1 by 1.1 cm in size on axial image 77. PARANASAL SINUSES: Clear. OTHER: No other significant finding. IMPRESSION: No worrisome masses or adenopathy in the neck. Post partial resection of the left parotid gland, superficial lobe has been removed. No residual mas s. Post thyroidectomy with small nodule of probable residual thyroid tissue in the left thyroid bed on a xial image 77 as above TECHNICAL DOCUMENTATION: JOB ID: [id number] Quality ID # [id number]: Final reports with documentation of one or more dose reduction techniques (e.g., Au tomated exposure control, adjustment of the mA and/or kV according to patient size, use of iterative reconstruction technique) 2010 [employer]- All Rights Reserved Reading location - IP/workstation name: [email or web address]
--- NOTE | 2018-07-18 15:28 | RADIOLOGY REPORT (SQ) ---
EXAM DESCRIPTION: CT CHEST WITH COMPLETED DATE/TIME: 07/18/2018 2:53 pm REASON FOR STUDY: R07.9 CHEST PAIN,UNSPECIFIED R07.9 CHEST PAIN, UNSPECIFIED R13.10 DYSPHAGIA, UNS PECIFIED R22.1 LOCALIZED SWELLING, MASS AND LUMP, NECK COMPARISON: CT angio chest 07/20/2016 TECHNIQUE: CT scan of the chest performed using helical scanning technique with dynamic intravenous contrast injection. Images reviewed with lung, soft tissue and bone windows. Reconstructed coronal and sagittal MPR and MIP images reviewed. All images stored on PACS. All CT scanners at this facility use dose modulation, iterative reconstruction, and/or weight based d osing when appropriate to reduce radiation dose to as low as reasonably achievable (ALARA). [facility]: Dose Right [facility]: CareDose [facility]: Dose Right [facility]: Teradose 4D [facility]: Vinsula CONTRAST TYPE AND DOSE: contrast/concentration: Isovue mg/ml; Total Contrast Delivered: 80.0 ml; To steffanie Saline Delivered: 55.0 ml RENAL FUNCTION: Creatinine 1.2 RADIATION DOSE: 23 mGy . LIMITATIONS: None. FINDINGS: LUNGS AND PLEURA: No opacities, nodules, masses. No pneumothorax. No effusions. HILAR AND MEDIASTINAL STRUCTURES: No identified masses or abnormal nodes. Small hiatal hernia. HEART AND VASCULAR STRUCTURES: Post sternotomy with mitral valve replacement. Heavily calcified aort ic valve. Minimal coronary artery calcifications. Mild cardiomegaly without pericardial effusion HARDWARE: Old sternotomy and mitral valve replacement UPPER ABDOMEN: No significant findings. Limited exam. THYROID AND OTHER SOFT TISSUES: No masses. No adenopathy. BONES: No significant finding. OTHER: No other significant finding. IMPRESSION: Post sternotomy with mitral valve replacement. Calcified aortic valve. Mild cardiomega ly. No acute infiltrates or pleural effusions. No thoracic aortic dissection or aneurysm. TECHNICAL DOCUMENTATION: JOB ID: [id number] Quality ID # 436: Final reports with documentation of one or more dose reduction techniques (e.g., Au tomated exposure control, adjustment of the mA and/or kV according to patient size, use of iterative reconstruction technique) 2010 [employer]- All Rights Reserved Reading location - IP/workstation name: [facility]
== END ==
LOC: RAD 14:41
PROVIDERS: ATTEND Physician Assistant Medical
DX: R07.9 Chest pain, unspecified (principal); R13.10 Dysphagia, unspecified; R22.1 Localized swelling, mass and lump, neck
CPT/HCPCS: 70491; 71260; 82565

== ENCOUNTER → 2018-07-20 | Outpatient (CLI) | payer MEDICARE, OTHER ==
--- NOTE | 2018-07-20 16:23 | WOMENS IMAGING REPORT ---
EXAM DESCRIPTION: BILAT SCREENING MAMMO W/CAD COMPLETED DATE/TIME: 07/20/2018 4:08 pm REASON FOR STUDY: ROUTINE BILATERAL SCREENING;Z12.31 Z12.31 ENCNTR SCREEN MAMMOGRAM FOR MALIGNANT N EOPLASM OF INEZ COMPARISON: 02/10/2017 and 03/12/2016. TECHNIQUE: Standard craniocaudal and mediolateral oblique views of each breast recorded using digita l acquisition. LIMITATIONS: None. FINDINGS: No masses, calcifications or architectural distortion. No areas of suspicion. Read with the assistance of CAD. .[facility] - R2 Cenova Version 1.3 .[facility] - R2 Cenova Version 1.3 .[facility] - R2 Cenova Version 2.4 .[facility] [place] R2 Cenova Version 2.4 .[facility] - R2 [employer] Dismantler Version 9.2 IMPRESSION: NORMAL MAMMOGRAM. BIRADS 1. BREAST DENSITY: b. There are scattered areas of fibroglandular density. BIRAD: 1 NEGATIVE RECOMMENDATION: ROUTINE SCREENING COMMENT: The patient has been notified of the results by letter per MQSA requirements. Additional no tification policies are in place for contacting patient with suspicious or incomplete findings. Quality ID #225: The [employer] recommends an annual screening mammogram for women aged 40 years or over. This facility utilizes a reminder system to ensure that all patients receive reminder letters, and/or direct phone calls for appointments. This includes reminders for routine scr eening mammograms, diagnostic mammograms, or other Breast Imaging Interventions when appropriate. Th is patient will be placed in the appropriate reminder system. The [employer] (ACR) has developed recommendations for screening MRI of the breast s in certain patient populations, to be used in conjunction with mammography. Breast MRI surveillanc e may be appropriate for women with more than 20% lifetime risk of developing breast cancer as deter mined by genetic testing, significant family history of the disease, or history of mantle radiation f or Hodgkins Disease. ACR Practice Guidelines 2008. TECHNICAL DOCUMENTATION: FINDING NUMBER: (1) ASSESSMENT: (1) JOB ID: [id number] [employer] All Rights Reserved Reading location - IP/workstation name: [email or web address]
== END ==
LOC: WI 15:00
PROVIDERS: ATTEND Physician Assistant
DX: Z12.31 Encounter for screening mammogram for malignant neoplasm of breast (principal)
CPT/HCPCS: 77067

== ENCOUNTER → 2018-08-15 | Outpatient (CLI) | payer MEDICARE, OTHER ==
--- NOTE | 2018-08-15 11:18 | RADIOLOGY REPORT (SQ) ---
EXAM DESCRIPTION: LYLE SWALLOW COMPLETED DATE/TIME: 08/15/2018 8:47 am REASON FOR STUDY: DYSPHAGIA (R13.10) R13.10 DYSPHAGIA, UNSPECIFIED Resection of parotid nodule and thyroid gland COMPARISON: None. TECHNIQUE: Videofluoroscopic swallowing examination was performed in conjunction with speech patholo gy. Videofluoroscopic imaging was obtained and reviewed and these are the findings: RADIATION DOSE: 1.4 minutes of fluoroscopy was used. 1 images saved to PACS. LIMITATIONS: None FINDINGS: The patient was brought into the fluoro room and placed upright on a modified barium swall ow chair. The patient was then given multiple consistencies mixed with barium to swallow under live fluoroscopic video guidance. According to the Speech Pathologist there was no penetration or aspirat ion. Post swallow residual contrast within the vallecular. IMPRESSION: NO EVIDENCE OF PENETRATION OR ASPIRATIONPLEASE SEE SPEECH PATHOLOGIST REPORT FOR OTHER F INDINGS AND RECOMMENDATIONS. COMMENT: Quality ID 145: Final reports for procedures using fluoroscopy that document radiation exp osure indices, or exposure time and number of fluorographic images (if radiation exposure indices are not available) TECHNICAL DOCUMENTATION: JOB ID: [id number] [employer]- All Rights Reserved Reading location - IP/workstation name: [email or web address]
--- NOTE | 2018-08-15 16:57 | ST Modified Barium Swallow ---
Recommendation - Recommendations Recommendations: No diet changes recommended. Strategies include remaining upright after meals and alternating bites/sips. Some possible reduced UES opening seen. Medical Diagnoses - Medical Diagnoses Medical Diagnosis Description & ICD-10 Code(s): R13.10 Other Medical Diagnoses/Co-Morbidities: per patient report: Graves disease, thyroid surgery in 1962, mass behind left ear-removed, "brain bleed" in 2016. ST Modified Barium Swallow - General Date: 08/15/18 Referring Physician: Terri Collins PA-C Risks/Precautions: None Date of Onset: 08/01/17 - approximate onset date Reason for Referral: globus sensation - History History obtained from: Patient -: Medical - Patient reports that she has been experiencing difficulty swallowing for approximately 1 year with no known precipitating factor or event. Reports globus sensation, no coughing or choking sensations. No recent pneumonia reported. Medications: per patient report: hypertension medication, thyroid medication, morforin. Allergies: patient reports omega-3 allergy - Functional Status Prior Functional Status: INDEPENDENT: feeding - independent Current Functional Limitations: feeding - Subjective Patient/caregiver goal(s): safe swallow Cognitive-Linguistic Function: WNL Speech Intelligibility: WNL Current Nutritional Means: PO Current PO diet: Regular Current symptoms: c/o Globus sensation Pain: Patient reports, 0/5 - Objective Assessment: Upright, Left Lateral - Food Trials Used Food trials used: Thin liquids, Pureed, Regular The patient: Was Able to Self Feed - Oral-Motor Skills Dentition: Full Velo-pharyngeal function: Unremarkable Laryngeal Function: clear voicing - Assessment Oral prep: Normal Labial closure: Adequate Leakage: None Mastication: Adequate Lingual Movement: Normal Oral stage: Normal for this Procedure - Pharyngeal Stage Initiation of Pharyngeal Stage Reflex: Normal Decreased laryngeal elevation: No Reduced Velopharyngeal Closure: no Reduced pressure generation: No reduced tongue-based retraction: No Pre-swallow pooling in valleculae: None Pre-Swallow pooling in pyriforms: None Reduced Thyro-Hyoid approximation: No Reduced epiglottic excursion: No Reduced pharyngeal peristalsis/contraction: No Multiple Swallows with: Cleared w/ Liquid Assist Post-swallow residulas vallecular: Mild Post-Swallow residuals in pyriforms: None Reduced Cricopharyngeal opening: Yes - possible reduced opening due to level of residue. - Fall Risk Assessment Medications/Conditions that increase fall risks include: Antidepressants, sedatives, anti-arrhythmic, diuretic, benzodiazipenes, neuroleptics. BP regulation problems, cardiac problems, balance or gait deficits, neurological problems. Is patient considered at risk for falls: no Fall Risk Actions Taken: No action needed - Behavioral Observations During evaluation process patient: was pleasant, was cooperative, able to answer questions - Treatment / Educational Needs: Treatment/Education Needs: Treatment consisted of patient education on the role of the Speech Pathologist. Patient's plan of care and golas were communicated as well as scheduling and attendance policies. Recommendations for initial home program were shared. Patient demonstrated understanding and verbalized agreement. - Impression/Summary Laryngeal Penetration: No Tracheal Aspiration: no Compesatory strategies: alternating bites and sips Patient presents with: Pharyngeal stage dysph., Mild-Moderate Risk of Aspiration: Minimal Risk of nutritional compromise: None - Recommendations Solid diet recommendations: Regular Liquid Diet Modification: Thin Pt/Family education and followup with MD: Yes Dysphagia therapy with LOAN REPRESENTATIVE: no Reflux Precautions: Taught to Patient Recommended techniques: Fully Upright During Meal, Alternate Bites/Sips Information, Precautions and Recommendations: Patient (Written), Patient (Verbal) - Plan of Care Strategies to optimize patient understanding include:: ongoing assessment of educational needs, implementation of educational strategies, and re-education. - - -: Thank you for the opportunity to work with this patient and his/her family. Should you have any questions about this patient's plan or progress, I can be reached at [phone].
== END ==
LOC: RAD 08:09
PROVIDERS: ATTEND Physician Assistant Medical
DX: R13.13 Dysphagia, pharyngeal phase (principal); R22.1 Localized swelling, mass and lump, neck; R07.9 Chest pain, unspecified
CPT/HCPCS: 74230

== ENCOUNTER → 2018-10-31 | Outpatient (CLI) | payer MEDICARE, OTHER ==
--- NOTE | 2018-10-31 15:45 | RADIOLOGY REPORT (SQ) ---
EXAM DESCRIPTION: CT HEAD WITHOUT COMPLETED DATE/TIME: 10/31/2018 1:59 pm REASON FOR STUDY: HX OF HEMORRHAGIC STROKE (I67.9) I67.9 CEREBROVASCULAR DISEASE, UNSPECIFIED COMPARISON: MRI brain 09/24/2017 CT brain 05/15/2015, 07/20/2016, 10/08/2016, 08/14/2017, 05/24/2018 TECHNIQUE: Axial images acquired through the brain without intravenous contrast. Images reviewed wi th bone, brain and subdural windows. Additional sagittal and coronal reconstructions were generated. Images stored on PACS. All CT scanners at this facility use dose modulation, iterative reconstruction, and/or weight based d osing when appropriate to reduce radiation dose to as low as reasonably achievable (ALARA). [facility]: Dose Right [facility]: CareDose [facility]: Dose Right [facility]: Teradose 4D [facility]: Smart SkyRank RADIATION DOSE: CT Rad equipment meets quality standard of care and radiation dose reduction techniq ues were employed. CTDIvol: 48.6 mGy. DLP: 978 mGy-cm. mGy. LIMITATIONS: None. FINDINGS: VENTRICLES: Normal size and contour. CEREBRUM: No masses. No hemorrhage. No midline shift. No evidence for acute infarction. Normal gra y/white matter differentiation. No areas of low density in the white matter. CEREBELLUM: No masses. No hemorrhage. No alteration of density. No evidence for acute infarction. EXTRAAXIAL SPACES: No fluid collections. There is diffuse dense hyperostosis interna throughout the calvarium, and very dense bulky dural calcification along the falx and tentorium. This effaces the e xtra-axial CSF spaces over the convexities and sylvian fissures, similar compared to studies dating b ack to 2014. ORBITS AND GLOBE: No intra- or extraconal masses. Normal contour of globe without masses. CALVARIUM: No fracture. PARANASAL SINUSES: No fluid or mucosal thickening. SOFT TISSUES: No mass or hematoma. OTHER: No other significant finding. IMPRESSION: No acute findings. Stable bulky hyperostosis interna and dense falx and tentorial calcification. EVIDENCE OF ACUTE STROKE: NO. COMMENT: Quality ID # [id number]: Final reports with documentation of one or more dose reduction techniques (e.g., Automated exposure control, adjustment of the mA and/or kV according to patient size, use of iterative reconstruction technique) TECHNICAL DOCUMENTATION: JOB ID: [id number] [employer]- All Rights Reserved Reading location - IP/workstation name: [email or web address]
== END ==
LOC: RAD 13:19
PROVIDERS: ATTEND Physician Assistant
DX: I67.9 Cerebrovascular disease, unspecified (principal)
CPT/HCPCS: 70450

== ENCOUNTER → 2018-12-26 | Outpatient (CLI) | payer MEDICARE, OTHER ==
[2018-12-26 11:57] LABS: INTERNATIONAL RATION (INR) 1.68; PROTHROMBIN TIME 20.6 SEC (11.4-15.4)
== END ==
LOC: LAB 11:35
PROVIDERS: ATTEND Physician Assistant
DX: Z51.81 Encounter for therapeutic drug level monitoring (principal); Z79.01 Long term (current) use of anticoagulants
CPT/HCPCS: 36415; 85610

== ENCOUNTER → 2018-12-29 | Outpatient (CLI) | payer MEDICARE, OTHER ==
[2018-12-29 11:20] LABS: INTERNATIONAL RATION (INR) 2.71; PROTHROMBIN TIME 30.1 SEC (11.4-15.4)
== END ==
LOC: LAB 10:29
PROVIDERS: ATTEND Family Medicine
DX: Z51.81 Encounter for therapeutic drug level monitoring (principal); Z79.01 Long term (current) use of anticoagulants
CPT/HCPCS: 36415; 85610

== ENCOUNTER 2019-01-08 10:37 | Emergency (ER) | payer MEDICARE, OTHER ==
--- NOTE | 2019-01-08 11:10 | ER Document Report ---
ED Medical Screen (RME) - General Chief Complaint: Headache Stated Complaint: HEADACHE Time Seen by Provider: 01/08/19 11:02 Primary Care Provider: SNOW CARTER MD [Primary Care Provider] - Follow up as needed TRAVEL OUTSIDE OF THE [place] IN LAST 30 DAYS: No - HPI Notes: 01/08/19 11:08 Patient is a 68-year-old female with a history of valve replacement, cerebral hemorrhage, hypertension, "prediabetic" who presents complaining of right-sided headache that began yesterday around 8:30 in the morning. Patient states that the pain is a pressure feeling in the right side of the forehead, but has been global intermittently. Patient states that she has bilateral tingling of her hands and some on her face, but no numbness. She is still able to ambulate without difficulty although she states that she did stumble once or twice over the course 24 hours. No falls. She is eating and drinking without difficulty. She is urinating normally and having normal bowel movements. No recent illness. Denies any fever, head injury, neck pain, changes in vision/speech/mentation/hearing, URI, sore throat, chest pain, palpitations, syncope, cough, shortness of breath, wheeze, dyspnea, abdominal pain, vomiting/diarrhea, urinary retention, dysuria, hematuria, loss of control of bowel or bladder, numbness, muscle paralysis/weakness, or rash. Pt states she wants a CT scan performed. I have treated and performed a rapid initial assessment of this patient. A comprehensive ED assessment and evaluation of the patient, analysis of test results and completion of medical decision making process will be conducted by additional ED providers. PHYSICAL EXAMINATION: GENERAL: Well-appearing, well-nourished and in no acute distress. A&Ox4. Answers questions appropriately. HEAD: Atraumatic, normocephalic. Non-tender. EYES: Pupils equal round and reactive to light, extraocular movements intact, sclera anicteric, conjunctiva are normal. No nystagmus. ENT: Nares patent and without discharge. oropharynx clear without exudates. No tonsilar hypertrophy or erythema. Moist mucous membranes. NECK: Normal range of motion, supple without lymphadenopathy. No rigidity/men ingismus. No midline tenderness. LUNGS: Breath sounds clear to auscultation bilaterally and equal. No wheezes rales or rhonchi. HEART: Regular rate and rhythm without murmurs, rubs, gallops. Musculoskeletal: Ext's b/l: FROM to passive/active. Strength 5+/5. No deficits noted. Extremities: No cyanosis, clubbing, or edema b/l. Peripheral pulses 2+. Capillary refill less than 2 seconds. NEUROLOGICAL: NIH 0. GCS 15. Cranial nerves grossly intact. Normal speech, normal gait. Normal sensory, motor exams. Reflexes 2+ b/l. ELILE's negative. Pronator drift negative. Heel/pablo, finger/nose wnl. Romberg neg. PSYCH: Normal mood, normal affect. SKIN: Warm, Dry, normal turgor, no rashes or lesions noted. - Related Data Allergies/Adverse Reactions: omega-3 acid ethyl esters Allergy (Verified 01/08/19 10:39) propoxyphene napsylate [From DarvoPercellot-N 100] Allergy (Verified 01/08/19 10:39) Past Medical History - Past Medical History Cardiac Medical History: Reports: Hx Hypercholesterolemia, Hx Hypertension Endocrine Medical History: Reports: Hx Diabetes Mellitus Type 2, Hx Graves' Disease, Hx Hypothyroidism Renal/ Medical History: Reports: Hx Ectopic . Denies: Hx Peritoneal Dialysis GI Medical History: Reports: Hx Colonoscopy - With polyps removed, Hx Endoscopy Musculoskeltal Medical History: Reports Hx Musculoskeletal Deformity Past Surgical History: Reports: Hx Cardiac Surgery - Mitral valve mechanical, Hx Hysterectomy, Hx Thyroid Surgery - Removed r/t goiter - Immunizations Hx Diphtheria, Pertussis, Tetanus Vaccination: Yes - 2002 Physical Exam - Vital signs Vitals: Temp Pulse Resp BP Pulse Ox 98.3 F 61 18 173/70 H 96 01/08/19 10:43 01/08/19 10:43 01/08/19 10:43 01/08/19 10:43 01/08/19 10:43 Course - Vital Signs Vital signs: Temp Pulse Resp BP Pulse Ox 98.3 F 61 18 173/70 H 96 01/08/19 10:43 01/08/19 10:43 01/08/19 10:43 01/08/19 10:43 01/08/19 10:43 Doctor's Discharge - Discharge Referrals: SNOW CARTER MD [Primary Care Provider] - Follow up as needed
[2019-01-08 12:00] LABS: ABSOLUTE EOSINOPHILS # (AUTO) 0.2 10^3/uL (0.0-0.6); ABSOLUTE LYMPHOCYTES (AUTO) 1.5 10^3/uL (0.5-4.7); ABSOLUTE MONOCYTES (AUTO) 0.4 10^3/uL (0.1-1.4); ABSOLUTE NEUT (AUTO) 4.8 10^3/uL (1.7-8.2); BASOPHILS % (AUTO) 0.7 % (0-2); EOSINOPHILS % (AUTO) 2.7 % (0-6); HEMATOCRIT 37.3 % (36.0-47.0); HEMOGLOBIN 11.9 g/dL (12.0-15.5); LYMPHOCYTES % (AUTO) 21.9 % (13-45); MEAN CORPUSCULAR HEMOGLOBIN 25.5 pg (27.0-33.4); MEAN CORPUSCULAR HGB CONC 31.9 g/dL (32.0-36.0); MEAN CORPUSCULAR VOLUME 80 fl (80-97); MONOCYTES % (AUTO) 5.8 % (3-13); PLATELET COUNT 220 10^3/uL (150-450); RED BLOOD COUNT 4.66 10^6/uL (3.72-5.28); RED CELL DISTRIBUTION WIDTH 16.6 % (11.5-14.0); SEGMENTED NEUTROPHILS % (AUTO) 68.9 % (42-78); TOTAL CELLS COUNTED % (AUTO) 100 %
[2019-01-08 12:06] LABS: INTERNATIONAL RATION (INR) 2.48
[2019-01-08 12:07] LABS: PARTIAL THROMBOPLASTIN TIME 59.2 SEC (23.5-35.8)
[2019-01-08 12:17] LABS: APPEARANCE,URINE SLIGHTLY-CLOUDY; BILIRUBIN,URINE NEGATIVE (NEGATIVE); COLOR,URINE YELLOW; GLUCOSE, URINE NEGATIVE (NEGATIVE); KETONES,URINE NEGATIVE (NEGATIVE); LEUKOCYTE ESTERASE,URINE MODERATE (NEGATIVE); NITRITE,URINE NEGATIVE (NEGATIVE); PROTEIN,URINE NEGATIVE (NEGATIVE); URINE SPECIFIC GRAVITY 1.014; UROBILINOGEN,URINE NEGATIVE mg/dL (<2.0)
[2019-01-08 12:29] LABS: ALANINE AMINOTRANSFERASE 49 U/L (9-52); ALBUMIN 4.3 g/dL (3.5-5.0); ALKALINE PHOSPHATASE 133 U/L (38-126); ANION GAP 12 (5-19); ASPARTATE AMINO TRANSFERASE 32 U/L (14-36); BILIRUBIN,DIRECT 0.2 mg/dL (0.0-0.4); BILIRUBIN,TOTAL 0.9 mg/dL (0.2-1.3); BLOOD UREA NITROGEN 18 mg/dL (7-20); CALCIUM 9.9 mg/dL (8.4-10.2); CARBON DIOXIDE 28 mmol/L (22-30); CHLORIDE 105 mmol/L (98-107); GLUCOSE 96 mg/dL (75-110); POTASSIUM 3.9 mmol/L (3.6-5.0); SODIUM 144.6 mmol/L (137-145); TOTAL PROTEIN 7.1 g/dL (6.3-8.2)
--- NOTE | 2019-01-08 12:37 | RADIOLOGY REPORT (SQ) ---
EXAM DESCRIPTION: CT HEAD WITHOUT COMPLETED DATE/TIME: 01/08/2019 12:24 pm REASON FOR STUDY: Rt sided MEZA, h/o bleed COMPARISON: 01/08/2019 TECHNIQUE: Axial images acquired through the brain without intravenous contrast. Images reviewed wi th bone, brain and subdural windows. Additional sagittal and coronal reconstructions were generated. Images stored on PACS. All CT scanners at this facility use dose modulation, iterative reconstruction, and/or weight based d osing when appropriate to reduce radiation dose to as low as reasonably achievable (ALARA). [facility]: Dose Right [facility]: CareDose [facility]: Dose Right [facility]: Teradose 4D [facility]: Smart Loopd Via RADIATION DOSE: CT Rad equipment meets quality standard of care and radiation dose reduction techniq ues were employed. CTDIvol: 53.2 mGy. DLP: 1070 mGy-cm. mGy. LIMITATIONS: None. FINDINGS: VENTRICLES: Normal size and contour. CEREBRUM: No masses. No hemorrhage. No midline shift. No evidence for acute infarction. Normal gra y/white matter differentiation. No areas of low density in the white matter. CEREBELLUM: No masses. No hemorrhage. No alteration of density. No evidence for acute infarction. EXTRAAXIAL SPACES: Extensive, bulky dural calcifications. ORBITS AND GLOBE: No intra- or extraconal masses. Normal contour of globe without masses. CALVARIUM: Hyperostosis. PARANASAL SINUSES: No fluid or mucosal thickening. SOFT TISSUES: No mass or hematoma. OTHER: No other significant finding. IMPRESSION: No acute intracranial pathology. Hyperostosis and extensive, bulky dural calcifications as seen on prior examinations. EVIDENCE OF ACUTE STROKE: NO. COMMENT: Quality ID # [id number]: Final reports with documentation of one or more dose reduction techniques (e.g., Automated exposure control, adjustment of the mA and/or kV according to patient size, use of iterative reconstruction technique) TECHNICAL DOCUMENTATION: JOB ID: [id number] [employer]- All Rights Reserved Reading location - IP/workstation name: [email or web address]
--- NOTE | 2019-01-08 13:12 | EKG REPORT ---
SEVERITY:- ABNORMAL ECG - SINUS RHYTHM PROBABLE LEFT ATRIAL ABNORMALITY NONSPECIFIC INTRAVENTRICULAR CONDUCTION DELAY BORDERLINE R WAVE PROGRESSION, ANTERIOR LEADS : Confirmed by: Abe Bales MD 08-Jan-2019 13:11:43
[2019-01-08] MEDS ORDERED: DIPHENHYDRAMINE HCL 50 MG/ML VIAL IV ONE (14:21)
[2019-01-08] MEDS ORDERED: METOCLOPRAMIDE HCL ORAL SOLN 10 MG/10 ML UDCUP PO ONE (14:22)
--- NOTE | 2019-01-08 14:28 | ER Document Report ---
ED General - General Chief Complaint: Headache Stated Complaint: HEADACHE Time Seen by Provider: 01/08/19 11:02 Primary Care Provider: SNOW CARTER MD [Primary Care Provider] - Follow up as needed Mode of Arrival: Ambulatory Information source: Patient TRAVEL OUTSIDE OF THE [place] IN LAST 30 DAYS: No - HPI Patient complains to provider of: Headache, paresthesias Onset: Yesterday Onset/Duration: Gradual Severity: Moderate Pain Level: 3 Associated symptoms: None. denies: Chills, Fever Exacerbated by: Denies Relieved by: Denies Similar symptoms previously: No Recently seen / treated by doctor: No Notes: 68-year-old -Beninese female coming in today chief complaint of right- sided headache and paresthesias in her hands. Denies having any kind of weakness. Blood pressure has been fluctuating over the past couple of days. Patient is on Coumadin for heart valve issues. Coming in today to make sure she is not having any kind of cerebral hemorrhage. No fevers or chills. No nuchal rigidity. No rash. He has no nausea or vomiting. - Related Data Allergies/Adverse Reactions: omega-3 acid ethyl esters Allergy (Verified 01/08/19 10:39) propoxyphene napsylate [From Darvocet-N 100] Allergy (Verified 01/08/19 10:39) Past Medical History - General Information source: Patient - Social History Smoking Status: Never Smoker Family History: Arthritis, CAD, CVA, Hyperlipidemia, Hypertension, Malignancy, Thyroid Disfunction, Other Patient has suicidal ideation: No Patient has homicidal ideation: No - Past Medical History Cardiac Medical History: Reports: Hx Hypercholesterolemia, Hx Hypertension Endocrine Medical History: Reports: Hx Diabetes Mellitus Type 2, Hx Graves' Disease, Hx Hypothyroidism Renal/ Medical History: Reports: Hx Ectopic . Denies: Hx Peritoneal Dialysis GI Medical History: Reports: Hx Colonoscopy - With polyps removed, Hx Endoscopy Musculoskeletal Medical History: Reports Hx Musculoskeletal Deformity Past Surgical History: Reports: Hx Cardiac Surgery - Mitral valve mechanical, Hx Hysterectomy, Hx Thyroid Surgery - Removed r/t goiter - Immunizations Hx Diphtheria, Pertussis, Tetanus Vaccination: Yes - 2002 Hx Pneumococcal Vaccination: 05/01/10 Review of Systems - Review of Systems Notes: Constitutional: No fevers. No chills. EENT: No eye redness. No eye pain. No ear pain. No sore throat. Cardiovascular: No chest pain. No palpitations. Respiratory: No cough. No shortness of breath. No respiratory distress. Gastrointestinal: No abdominal pain. No nausea, vomiting, or diarrhea. Genitourinary: Atraumatic. No lesions. No pain. No discharge. Musculoskeletal: Atraumatic. No swelling. No deformities. Skin: No rash or lesions. Lymphatic: No swollen lymph nodes. Neurologic: Positive headache, positive hand paresthesias Psychiatric: No suicidal or homicidal ideation. Physical Exam - Vital signs Vitals: Temp Pulse Resp BP Pulse Ox 98.3 F 61 18 173/70 H 96 01/08/19 10:43 01/08/19 10:43 01/08/19 10:43 01/08/19 10:43 01/08/19 10:43 - Notes Notes: General: Well-developed, well-nourished. In no acute distress. Non-toxic appearing. Cardiac: Well-perfused. Regular rate and rhythm. No murmurs, rubs, or gallops. Pulmonary: No respiratory distress. No cyanosis. Bilateral lung fiels are clear to auscultation. Abdominal: Non-distended. Non-rigid. Bowels sounds are present in all four quadrants. No guarding or rebound. HEENT: Head is atraumatic. Conjunctivae not reddened. No tearing. PERRL. EOMI. Orbits atraumatic. No periorbital swelling or erythema. Oropharynx is without erythema, swelling, or exudates. Neck: Supple. No adenopathy. No meningismus. Dermatologic: Warm with good turgor. No rash. Atraumatic. Chest: Atraumatic. No chest wall tenderness to palpation. Musculoskeletal: Moves all extremities well. No range of motion deficits. no muscular or joint tenderness. No paraspinal muscle tenderness. no midline spinal tenderness or step-off. Genitourinary: Examination deferred Neurologic: No gross neurologic deficits. Cranial nerves II through XII intact. No pronator drift. Strength 2+ in all 4 extremities. No deficits. Psychiatric: Normal mood. Course - Re-evaluation Re-evalutation: 01/08/19 14:27 Patient does not appear to have any focal neurologic deficits. Her CT scan does not reveal any intracranial hemorrhage. Her INR is therapeutic at 2.48. She does not want anything narcotic for headache. We will give her some Reglan and Benadryl and see how this does. Suspect the paresthesias are secondary to the headache. 01/08/19 16:00 Patient ended up getting 25 mg of p.o. Benadryl and 10 mg of Reglan p.o. She is feeling better. Headache is leading off. Paresthesias improved. Ready to go home. Will discharge home. Prescription for Reglan. She can take [id number] Benadryl. Patient is satisfied with this plan will follow-up with her primary care provider as needed. - Vital Signs Vital signs: Temp Pulse Resp BP Pulse Ox 98.3 F 59 L 18 156/73 H 98 01/08/19 10:43 01/08/19 13:29 01/08/19 15:01 01/08/19 15:01 01/08/19 15:01 - Laboratory Result Diagrams: 01/08/19 11:40 01/08/19 11:40 Laboratory results interpreted by me: 01/08/19 01/08/19 01/08/19 11:40 11:40 11:40 Hgb 11.9 L MCH 25.5 L MCHC 31.9 L RDW 16.6 H PT 28.0 H APTT 59.2 H Est GFR (Non-Af Amer) 51 L Alkaline Phosphatase 133 H Ur Leukocyte Esterase 01/08/19 11:40 Hgb MCH MCHC RDW PT APTT Est GFR (Non-Af Amer) Alkaline Phosphatase Ur Leukocyte Esterase MODERATE H Discharge - Discharge Clinical Impression: Paresthesias Headache Qualifiers: Headache type: unspecified Headache chronicity pattern: acute headache Intractability: not intractable Qualified Code(s): R51 - Headache Condition: Good Disposition: HOME, SELF-CARE Instructions: Antinausea Medication ([facility]), Headache ([facility]), Reglan ([facility]), Use of Diphenhydramine, Numbness or Paresthesia ([facility]) Additional Instructions: Return as needed if worse. Please plan to follow-up with your primary care provider in the next couple of days. Reglan will be prescribed to you, however Benadryl is available in the 25 mg tablets [id number]. These 2 medications seem to work well together for headaches such as yours. Prescriptions: Metoclopramide HCl [Reglan 10 mg Tablet] 1 tab PO Q6HP PRN #20 tablet PRN Reason: Referrals: SNOW CARTER MD [Primary Care Provider] - 01/10/19
[2019-01-08] MEDS ORDERED: DIPHENHYDRAMINE HCL 25 MG CAPSULE PO ONE (15:04)
[2019-01-08] MEDS ORDERED: METOCLOPRAMIDE HCL 10 MG TABLET PO ONE (15:05)
[2019-01-08 16:04] VITALS: BP 155/78
== END 2019-01-08 16:25 | disposition home or self-care (01) ==
LOC: ER 10:37
DX: R51 Headache (principal); R20.2 Paresthesia of skin; Z79.01 Long term (current) use of anticoagulants; I10 Essential (primary) hypertension; E11.9 Type 2 diabetes mellitus without complications
CPT/HCPCS: 93005; 99284; 36415; 85025; 85610; 85730; 80053; 81001; 70450; 93010; A9270 ×2

== ENCOUNTER 2019-03-06 10:18 | Emergency (ER) | payer MEDICARE, OTHER ==
--- NOTE | 2019-03-06 11:04 | ER Document Report ---
ED Medical Screen (RME) - General Chief Complaint: Probable Seizure Stated Complaint: POSSIBLE SEIZURE Time Seen by Provider: 03/06/19 11:00 Primary Care Provider: SNOW CARTER MD [Primary Care Provider] - Follow up as needed Notes: Patient is a 68-year-old female with past medical history of brain bleeds and hemorrhagic strokes presenting to the emergency department with concern that she had a seizure this morning. Patient denies any history of seizures. She reports that she did not pass out or lose consciousness and did not lose control of her bowel or bladder but does report she had a "radio static ringing in her head". She also reports that she saw bright lights and had a jerking sensation to her body. Patient is requesting a head CT as she states that she usually presents with strange symptoms when she has a hemorrhagic event. Exam: Patient alert, oriented, answering all questions appropriately. No focal neurological deficits are noted on exam. I have greeted and performed a rapid initial assessment of this patient. A comprehensive ED assessment and evaluation of the patient, analysis of test results and completion of the medical decision making process will be conducted by additional ED providers. I have specifically instructed the patient or family members with the patient to immediately return to any nursing staff should anything change in the patient's condition or with their chief complaint. This medical record was dictated with voice recognizing software. There may be grammatical, syntax errors that are unintended. TRAVEL OUTSIDE OF THE [place] IN LAST 30 DAYS: No - Related Data Allergies/Adverse Reactions: omega-3 acid ethyl esters Allergy (Verified 01/08/19 10:39) propoxyphene napsylate [From Darvocet-N 100] Allergy (Verified 01/08/19 10:39) Past Medical History - Social History Frequency of alcohol use: None Drug Abuse: None - Past Medical History Cardiac Medical History: Reports: Hx Hypercholesterolemia, Hx Hypertension Endocrine Medical History: Reports: Hx Diabetes Mellitus Type 2 - borderline, Hx Graves' Disease, Hx Hypothyroidism Renal/ Medical History: Reports: Hx Ectopic . Denies: Hx Peritoneal Dialysis GI Medical History: Reports: Hx Colonoscopy - With polyps removed, Hx Endoscopy Musculoskeltal Medical History: Reports Hx Musculoskeletal Deformity Past Surgical History: Reports: Hx Cardiac Surgery - Mitral valve mechanical, Hx Hysterectomy, Hx Thyroid Surgery - Removed r/t goiter - Immunizations Hx Diphtheria, Pertussis, Tetanus Vaccination: Yes - 2002 Physical Exam - Vital signs Vitals: Temp Pulse Resp BP Pulse Ox 98.5 F 67 20 153/70 H 97 03/06/19 10:26 03/06/19 10:03/06/19 10:03/06/19 10:03/06/19 10:26 Course - Vital Signs Vital signs: Temp Pulse Resp BP Pulse Ox 98.5 F 67 20 153/70 H 97 03/06/19 10:26 03/06/19 10:26 03/06/19 10:26 03/06/19 10:26 03/06/19 10:26 Doctor's Discharge - Discharge Referrals: SNOW CARTER MD [Primary Care Provider] - Follow up as needed
--- NOTE | 2019-03-06 11:48 | RADIOLOGY REPORT (SQ) ---
EXAM DESCRIPTION: CT HEAD WITHOUT COMPLETED DATE/TIME: 03/06/2019 11:15 am REASON FOR STUDY: hx of aneurism, possible seizure COMPARISON: 01/08/2019 TECHNIQUE: Axial images acquired through the brain without intravenous contrast. Images reviewed wi th bone, brain and subdural windows. Additional sagittal and coronal reconstructions were generated. Images stored on PACS. All CT scanners at this facility use dose modulation, iterative reconstruction, and/or weight based d osing when appropriate to reduce radiation dose to as low as reasonably achievable (ALARA). [facility]: Dose Right [facility]: CareDose [facility]: Dose Right [facility]: Teradose 4D [facility]: Smart NightOwl RADIATION DOSE: CT Rad equipment meets quality standard of care and radiation dose reduction techniq ues were employed. CTDIvol: 53.2 mGy. DLP: 1097 mGy-cm. mGy. LIMITATIONS: None. FINDINGS: VENTRICLES: Normal size and contour. CEREBRUM: No masses. No hemorrhage. No midline shift. No evidence for acute infarction. Normal gra y/white matter differentiation. No areas of low density in the white matter. CEREBELLUM: No masses. No hemorrhage. No alteration of density. No evidence for acute infarction. EXTRAAXIAL SPACES: No fluid collections. No masses. ORBITS AND GLOBE: No intra- or extraconal masses. Normal contour of globe without masses. CALVARIUM: Hyperostosis is again noted with extensive dural calcifications. No change from prior truman dy. PARANASAL SINUSES: There is bilateral maxillary and ethmoid air cell disease. SOFT TISSUES: No mass or hematoma. OTHER: No other significant finding. IMPRESSION: 1. No acute intracranial event. 2. Maxillary and ethmoid sinusitis. 3. Stable hyperostosis and extensive dural calcifications. EVIDENCE OF ACUTE STROKE: NO. COMMENT: Quality ID # [id number]: Final reports with documentation of one or more dose reduction techniques (e.g., Automated exposure control, adjustment of the mA and/or kV according to patient size, use of iterative reconstruction technique) TECHNICAL DOCUMENTATION: JOB ID: [id number] [employer]- All Rights Reserved Reading location - IP/workstation name: [email or web address]
--- NOTE | 2019-03-06 13:48 | ER Document Report ---
ED General - General Chief Complaint: Probable Seizure Stated Complaint: POSSIBLE SEIZURE Time Seen by Provider: 03/06/19 11:00 Primary Care Provider: [facility] [Provider Group] - Follow up in 3-5 days (for neurology follow up) SNOW CARTER MD [Primary Care Provider] - Follow up in 3-5 days TRAVEL OUTSIDE OF THE [place] IN LAST 30 DAYS: No - HPI Notes: 68-year-old female with history of mitral valve replacement, long-term anticoagulant use, and cerebral hemorrhage to the emergency department with complaints of possible seizure activity last night. She states that she takes lorazepam 1 mg to help her sleep. She is been on this medicine for about 2 year s. She states last night she took her last lorazepam and tried to sleep but was tossing and turning. She states that she got up and took a second lorazepam. She states that as she was laying down to go back to sleep she heard the static in her brain and felt like her eyes rolled back into her head. She states that she thinks she was shaking as well. She states this episode lasted 30 seconds. She states she has not had another episode since. She states that she got concerned that potentially she was having a cerebral hemorrhage because she has had one before. She denies any slurred speech, ringing in her ears, dizziness, difficulty walking, visual droop, chest pain, shortness of breath, abdominal pain, nausea, vomiting, diarrhea. States that she has been doing well today but she was worried about it so she decided to come get seen. - Related Data Allergies/Adverse Reactions: omega-3 acid ethyl esters Allergy (Verified 03/06/19 11:41) propoxyphene napsylate [From Darvocet-N 100] Allergy (Verified 03/06/19 11:41) Past Medical History - General Information source: Patient - Social History Smoking Status: Never Smoker Frequency of alcohol use: None Drug Abuse: None Family History: Arthritis, CAD, CVA, Hyperlipidemia, Hypertension, Malignancy, Thyroid Disfunction, Other Patient has suicidal ideation: No Patient has homicidal ideation: No - Past Medical History Cardiac Medical History: Reports: Hx Hypercholesterolemia, Hx Hypertension Endocrine Medical History: Reports: Hx Diabetes Mellitus Type 2 - borderline, Hx Graves' Disease, Hx Hypothyroidism Renal/ Medical History: Reports: Hx Ectopic . Denies: Hx Peritoneal Dialysis GI Medical History: Reports: Hx Colonoscopy - With polyps removed, Hx Endoscopy Musculoskeletal Medical History: Reports Hx Musculoskeletal Deformity Past Surgical History: Reports: Hx Cardiac Surgery - Mitral valve mechanical, Hx Hysterectomy, Hx Thyroid Surgery - Removed r/t goiter - Immunizations Hx Diphtheria, Pertussis, Tetanus Vaccination: Yes - 2002 Hx Pneumococcal Vaccination: 05/01/10 Review of Systems - Review of Systems Constitutional: denies: Chills, Fever EENT: No symptoms reported Cardiovascular: denies: Chest pain, Palpitations, Heart racing, Dyspnea, Syncope, Dizziness, Lightheaded Respiratory: denies: Cough, Short of breath Gastrointestinal: denies: Abdominal pain, Diarrhea, Nausea, Vomiting Musculoskeletal: No symptoms reported Skin: No symptoms reported Hematologic/Lymphatic: No symptoms reported Neurological/Psychological: Seizure - Patient reports possible seizure activity for 30 seconds last night. denies: Lost consciousness, Numbness, Tingling -: Yes All other systems reviewed and negative Physical Exam - Vital signs Vitals: Temp Pulse Resp BP Pulse Ox 98.5 F 67 20 153/70 H 97 03/06/19 10:26 03/06/19 10:26 03/06/19 10:26 03/06/19 10:26 03/06/19 10:26 Interpretation: Hypertensive - General General appearance: Appears well, Alert - HEENT Head: Normocephalic, Atraumatic Eyes: Normal Pupils: PERRL - Respiratory Respiratory status: No respiratory distress Chest status: Nontender Breath sounds: Normal Chest palpation: Normal - Cardiovascular Rhythm: Regular Heart sounds: S1 appreciated, S2 appreciated Murmur: No Notes: Noted mechanical click when auscultating the chest from mitral valve replacement - Abdominal Inspection: Normal Distension: No distension Bowel sounds: Normal Tenderness: Nontender Organomegaly: No organomegaly - Back Back: Normal, Nontender - Neurological Neuro grossly intact: Yes Cognition: Normal Orientation: AAOx4 [place] Coma Scale Eye Opening: Spontaneous Ro Coma Scale Verbal: Oriented Ro Coma Scale Motor: Obeys Commands Ro Coma Scale Total: 15 Speech: Normal Motor strength normal: LUE, RUE, LLE, RLE Sensory: Normal - Psychological Associated symptoms: Normal affect, Normal mood - Skin Skin Temperature: Warm Skin Moisture: Dry Skin Color: Normal Course - Re-evaluation Re-evalutation: 03/06/19 IMPRESSION: Episode of shaking after taking lorazepam. Her lab work and head CT are reassuring. Noted mild sinusitis on her head CT _- advised her of this finding-- she states that this is chronic. She has no symptoms of sinusitis. Will discharge home and have her follow up with neurology for further evaluation. Have advised patient that should not drive until she sees neurology and is cleared. Will discharge home. - Vital Signs Vital signs: Temp Pulse Resp BP Pulse Ox 97.9 F 62 17 160/74 H 95 03/06/19 14:44 03/06/19 14:44 03/06/19 14:44 03/06/19 14:44 03/06/19 14:44 - Laboratory Result Diagrams: 03/06/19 14:17 03/06/19 14:17 Laboratory results interpreted by me: 03/06/19 03/06/19 03/06/19 14:17 14:17 14:17 Hgb 11.8 L MCH 25.4 L MCHC 31.7 L RDW 17.3 H PT 27.8 H APTT 53.3 H Carbon Dioxide 31 H Est GFR (Non-Af Amer) 53 L - Diagnostic Test Radiology reviewed: Image reviewed, Reports reviewed Radiology results interpreted by me: 03/06/[address] 03/06/19 11:00 IMPRESSION: 1. No acute intracranial event. 2. Maxillary and ethmoid sinusitis. 3. Stable hyperostosis and extensive dural calcifications. EVIDENCE OF ACUTE STROKE: NO. Discharge - Discharge Clinical Impression: Anticoagulant long-term use Convulsion Qualifiers: Convulsion type: unspecified Qualified Code(s): R56.9 - Unspecified convulsions Sinusitis Qualifiers: Sinusitis location: unspecified location Chronicity: unspecified Qualified Code(s): J32.9 - Chronic sinusitis, unspecified Hypertension Qualifiers: Hypertension type: essential hypertension Qualified Code(s): I10 - Essential (primary) hypertension Condition: Stable Disposition: HOME, SELF-CARE Additional Instructions: FOLLOW UP WITH NEUROLOGY WITHOUT FAIL. RETURN IF WORSENING SYMPTOMS, RECURRENCE OF SYMPTOMS, OR ANY OTHER CONCERNS. DO NOT DRIVE UNTIL YOU SEE NEUROLOGY AND THEY CLEAR YOU. Referrals: SNOW CARTER MD [Primary Care Provider] - Follow up in 3-5 days [facility] [Provider Group] - Follow up in 3-5 days (for neurology follow up)
[2019-03-06 14:27] LABS: ABSOLUTE BASOPHILS # (AUTO) 0.1 10^3/uL (0.0-0.2); ABSOLUTE EOSINOPHILS # (AUTO) 0.2 10^3/uL (0.0-0.6); ABSOLUTE LYMPHOCYTES (AUTO) 1.9 10^3/uL (0.5-4.7); ABSOLUTE MONOCYTES (AUTO) 0.5 10^3/uL (0.1-1.4); ABSOLUTE NEUT (AUTO) 5.9 10^3/uL (1.7-8.2); BASOPHILS % (AUTO) 1.3 % (0-2); EOSINOPHILS % (AUTO) 2.1 % (0-6); HEMATOCRIT 37.2 % (36.0-47.0); HEMOGLOBIN 11.8 g/dL (12.0-15.5); LYMPHOCYTES % (AUTO) 22.1 % (13-45); MEAN CORPUSCULAR HEMOGLOBIN 25.4 pg (27.0-33.4); MEAN CORPUSCULAR HGB CONC 31.7 g/dL (32.0-36.0); MEAN CORPUSCULAR VOLUME 80 fl (80-97); MONOCYTES % (AUTO) 6.3 % (3-13); PLATELET COUNT 262 10^3/uL (150-450); RED BLOOD COUNT 4.65 10^6/uL (3.72-5.28); RED CELL DISTRIBUTION WIDTH 17.3 % (11.5-14.0); SEGMENTED NEUTROPHILS % (AUTO) 68.2 % (42-78); TOTAL CELLS COUNTED % (AUTO) 100 %; WHITE BLOOD COUNT 8.7 10^3/uL (4.0-10.5)
[2019-03-06 14:38] LABS: INTERNATIONAL RATION (INR) 2.54; PROTHROMBIN TIME 27.8 SEC (11.4-15.4)
[2019-03-06 14:39] LABS: PARTIAL THROMBOPLASTIN TIME 53.3 SEC (23.5-35.8)
[2019-03-06 14:46] VITALS: BP 160/74
[2019-03-06 14:48] LABS: ANION GAP 9 (5-19); BLOOD UREA NITROGEN 13 mg/dL (7-20); CARBON DIOXIDE 31 mmol/L (22-30); CHLORIDE 102 mmol/L (98-107); GLUCOSE 96 mg/dL (75-110); POTASSIUM 3.9 mmol/L (3.6-5.0)
== END 2019-03-06 15:10 | disposition home or self-care (01) ==
LOC: ER 10:18
DX: R56.9 Unspecified convulsions (principal); I10 Essential (primary) hypertension; J32.2 Chronic ethmoidal sinusitis; J32.0 Chronic maxillary sinusitis; M85.2 Hyperostosis of skull; G93.89 Other specified disorders of brain; Z95.2 Presence of prosthetic heart valve; Z79.01 Long term (current) use of anticoagulants; Z79.899 Other long term (current) drug therapy; Z88.8 Allergy status to other drugs, medicaments and biological substances; Z88.5 Allergy status to narcotic agent
CPT/HCPCS: 36415; 70450; 80048; 83735; 85025; 85610; 85730; 99285

== ENCOUNTER → 2019-04-23 | Outpatient (CLI) | payer MEDICARE, OTHER ==
[2019-04-23 16:46] LABS: INTERNATIONAL RATION (INR) 2.94; PROTHROMBIN TIME 31.3 SEC (11.4-15.4)
[2019-04-23 17:07] LABS: ALBUMIN 4.3 g/dL (3.5-5.0); ALKALINE PHOSPHATASE 147 U/L (38-126); ANION GAP 9 (5-19); ASPARTATE AMINO TRANSFERASE 28 U/L (14-36); BILIRUBIN,DIRECT 0.2 mg/dL (0.0-0.4); BILIRUBIN,TOTAL 0.7 mg/dL (0.2-1.3); BLOOD UREA NITROGEN 17 mg/dL (7-20); CARBON DIOXIDE 30 mmol/L (22-30); CHLORIDE 102 mmol/L (98-107); GLUCOSE 88 mg/dL (75-110); POTASSIUM 3.7 mmol/L (3.6-5.0); TOTAL PROTEIN 7.1 g/dL (6.3-8.2)
== END ==
LOC: OD 15:55
PROVIDERS: ATTEND Physician Assistant
DX: N28.9 Disorder of kidney and ureter, unspecified (principal); Z79.01 Long term (current) use of anticoagulants
CPT/HCPCS: 36415; 80053; 82627; 83001; 84403; 85610

== ENCOUNTER → 2019-07-02 | Outpatient (CLI) | payer MEDICARE, OTHER ==
--- NOTE | 2019-07-02 14:16 | RADIOLOGY REPORT (SQ) ---
EXAM DESCRIPTION: U/S RETROPERITON (RENAL/AORTA) COMPLETED DATE/TIME: 07/02/2019 1:22 pm REASON FOR STUDY: ABNORMAL KIDNEY FUNCTION N28.9 DISORDER OF KIDNEY AND URETER, UNSPECIFIED R94.4 ABNORMAL RESULTS OF KIDNEY FUNCTION STUDIES COMPARISON: None. TECHNIQUE: Dynamic and static grayscale images acquired of the kidneys and bladder and recorded on P ACS. Additional selected color Doppler and spectral images recorded. LIMITATIONS: None. FINDINGS: RIGHT KIDNEY: Normal size measuring 9.7 cm. Normal echogenicity. No solid or suspicious ma sses. No hydronephrosis. No calcifications. LEFT KIDNEY: Normal size measuring 10.3 cm. Normal echogenicity. No solid or suspicious masses. No h ydronephrosis. No calcifications. BLADDER: Decompressed. OTHER FINDINGS: No other significant finding. IMPRESSION: Unremarkable renal ultrasound. No hydronephrosis. TECHNICAL DOCUMENTATION: JOB ID: [id number] [employer]- All Rights Reserved Reading location - IP/workstation name: [email or web address]
== END ==
LOC: RAD 11:25
PROVIDERS: ATTEND Physician Assistant
DX: N28.9 Disorder of kidney and ureter, unspecified (principal); R94.4 Abnormal results of kidney function studies
CPT/HCPCS: 76770

== ENCOUNTER 2019-07-21 09:13 | Emergency (ER) | payer MEDICARE, OTHER ==
[2019-07-21 10:00] LABS: ABSOLUTE BASOPHILS # (AUTO) 0.1 10^3/uL (0.0-0.2); ABSOLUTE EOSINOPHILS # (AUTO) 0.2 10^3/uL (0.0-0.6); ABSOLUTE LYMPHOCYTES (AUTO) 1.5 10^3/uL (0.5-4.7); ABSOLUTE MONOCYTES (AUTO) 0.4 10^3/uL (0.1-1.4); ABSOLUTE NEUT (AUTO) 5.2 10^3/uL (1.7-8.2); BASOPHILS % (AUTO) 0.9 % (0-2); EOSINOPHILS % (AUTO) 2.8 % (0-6); HEMATOCRIT 37.6 % (36.0-47.0); HEMOGLOBIN 11.9 g/dL (12.0-15.5); LYMPHOCYTES % (AUTO) 20.1 % (13-45); MEAN CORPUSCULAR HEMOGLOBIN 26.3 pg (27.0-33.4); MEAN CORPUSCULAR HGB CONC 31.7 g/dL (32.0-36.0); MEAN CORPUSCULAR VOLUME 83 fl (80-97); MONOCYTES % (AUTO) 5.8 % (3-13); PLATELET COUNT 225 10^3/uL (150-450); RED BLOOD COUNT 4.53 10^6/uL (3.72-5.28); RED CELL DISTRIBUTION WIDTH 17.4 % (11.5-14.0); SEGMENTED NEUTROPHILS % (AUTO) 70.4 % (42-78); TOTAL CELLS COUNTED % (AUTO) 100 %; WHITE BLOOD COUNT 7.4 10^3/uL (4.0-10.5)
[2019-07-21 10:25] LABS: ALBUMIN 4.3 g/dL (3.5-5.0); ALKALINE PHOSPHATASE 127 U/L (38-126); ANION GAP 9 (5-19); ASPARTATE AMINO TRANSFERASE 29 U/L (14-36); BILIRUBIN,DIRECT 0.2 mg/dL (0.0-0.4); BILIRUBIN,TOTAL 0.8 mg/dL (0.2-1.3); BLOOD UREA NITROGEN 21 mg/dL (7-20); CALCIUM 10.1 mg/dL (8.4-10.2); CARBON DIOXIDE 28 mmol/L (22-30); CHLORIDE 104 mmol/L (98-107); GLUCOSE 101 mg/dL (75-110); POTASSIUM 4.1 mmol/L (3.6-5.0); TOTAL PROTEIN 7.3 g/dL (6.3-8.2)
[2019-07-21] MEDS ORDERED: NORMAL SALINE 1000 ML 1,000 ML IV ONE ×2 (10:46→13:16)
[2019-07-21] MEDS ORDERED: ACETAMINOPHEN WITH CODEINE #3 TABLET PO ONE (10:48)
--- NOTE | 2019-07-21 10:49 | ER Document Report ---
ED Medical Screen (RME) - General Chief Complaint: Flank Pain Stated Complaint: FLANK PAIN Time Seen by Provider: 07/21/19 10:38 Primary Care Provider: ORLANDO GAVIN PA [Primary Care Provider] - Follow up as needed Information source: Patient Notes: Patient presents complaining of right flank pain that started yesterday. Patient reports a history of frequent UTIs and suspects the same today. Patient denies any frequency or dysuria though. Patient states that she does not have usual typical UTI symptoms when she has a UTI. Patient denies any fever nausea or vomiting. Patient denies any abdominal tenderness. I have greeted and performed a rapid initial assessment of this patient. A comprehensive ED assessment and evaluation of the patient, analysis of test results and completion of the medical decision making process will be conducted by additional ED providers. TRAVEL OUTSIDE OF THE [place] IN LAST 30 DAYS: No - Related Data Allergies/Adverse Reactions: omega-3 acid ethyl esters Allergy (Verified 03/06/19 11:41) propoxyphene napsylate [From Darvocet-N 100] Allergy (Verified 03/06/19 11:41) Past Medical History - Social History Chew tobacco use (# tins/day): No Frequency of alcohol use: None Drug Abuse: None - Past Medical History Cardiac Medical History: Reports: Hx Hypercholesterolemia, Hx Hypertension Endocrine Medical History: Reports: Hx Diabetes Mellitus Type 2 - borderline, Hx Graves' Disease, Hx Hypothyroidism Renal/ Medical History: Reports: Hx Ectopic . Denies: Hx Peritoneal Dialysis GI Medical History: Reports: Hx Colonoscopy - With polyps removed, Hx Endoscopy Musculoskeltal Medical History: Reports Hx Musculoskeletal Deformity Past Surgical History: Reports: Hx Cardiac Surgery - Mitral valve mechanical, Hx Hysterectomy, Hx Thyroid Surgery - Removed r/t goiter - Immunizations Hx Diphtheria, Pertussis, Tetanus Vaccination: Yes - 2002 Physical Exam - Vital signs Vitals: Temp Resp Pulse Ox 97.7 F 16 99 07/21/19 09:13 07/21/19 09:13 07/21/19 09:13 - Back Back: CVA tenderness - Right Course - Vital Signs Vital signs: Temp Pulse Resp BP Pulse Ox 97.7 F 73 16 164/63 H 99 07/21/19 09:17 07/21/19 09:17 07/21/19 09:17 07/21/19 09:17 07/21/19 09:17 - Laboratory Result Diagrams: 07/21/19 09:49 07/21/19 09:49 Laboratory results interpreted by me: 07/21/19 07/21/19 09:49 09:49 Hgb 11.9 L MCH 26.3 L MCHC 31.7 L RDW 17.4 H BUN 21 H Creatinine 1.42 H Est GFR ( Amer) 44 L Est GFR (MDRD) Non-Af 37 L Alkaline Phosphatase 127 H Doctor's Discharge - Discharge Referrals: ORLANDO GAVIN PA [Primary Care Provider] - Follow up as needed
[2019-07-21 11:23] LABS: INTERNATIONAL RATION (INR) 2.41; PROTHROMBIN TIME 26.7 SEC (11.4-15.4)
--- NOTE | 2019-07-21 13:12 | ER Document Report ---
ED GI/ - General Chief Complaint: Flank Pain Stated Complaint: FLANK PAIN Time Seen by Provider: 07/21/19 10:38 Primary Care Provider: ORLANDO GAVIN PA [Primary Care Provider] - Follow up as needed Notes: 69-year-old female with history of frequent UTIs who is on Coumadin presents to the emergency department with chief complaint of right flank pain since 8 PM last states that it started as a deep pain and has since evolved into severe spasming type pain. Patient denies fevers or chills, denies urinary frequency or hematuria, denies dysuria. Denies history of kidney stones. Denies abdominal pain. Denies nausea/vomiting/diarrhea/constipation. TRAVEL OUTSIDE OF THE [place] IN LAST 30 DAYS: No - Related Data Allergies/Adverse Reactions: omega-3 acid ethyl esters Allergy (Verified 03/06/19 11:41) propoxyphene napsylate [From Darvocet-N 100] Allergy (Verified 03/06/19 11:41) Past Medical History - General Information source: Patient - Social History Smoking Status: Never Smoker Chew tobacco use (# tins/day): No Frequency of alcohol use: None Drug Abuse: None Family History: Arthritis, CAD, CVA, Hyperlipidemia, Hypertension, Malignancy, Thyroid Disfunction, Other Patient has suicidal ideation: No Patient has homicidal ideation: No - Past Medical History Cardiac Medical History: Reports: Hx Hypercholesterolemia, Hx Hypertension Endocrine Medical History: Reports: Hx Diabetes Mellitus Type 2 - borderline, Hx Graves' Disease, Hx Hypothyroidism Renal/ Medical History: Reports: Hx Ectopic . Denies: Hx Peritoneal Dialysis GI Medical History: Reports: Hx Colonoscopy - With polyps removed, Hx Endoscopy Musculoskeletal Medical History: Reports Hx Musculoskeletal Deformity Past Surgical History: Reports: Hx Cardiac Surgery - Mitral valve mechanical, Hx Hysterectomy, Hx Thyroid Surgery - Removed r/t goiter - Immunizations Hx Diphtheria, Pertussis, Tetanus Vaccination: Yes - 2002 Hx Pneumococcal Vaccination: 05/01/10 Review of Systems - Review of Systems Constitutional: See HPI EENT: No symptoms reported Cardiovascular: No symptoms reported Respiratory: No symptoms reported Gastrointestinal: See HPI Genitourinary: See HPI Female Genitourinary: No symptoms reported Musculoskeletal: No symptoms reported Skin: No symptoms reported Hematologic/Lymphatic: No symptoms reported Neurological/Psychological: No symptoms reported Physical Exam - Vital signs Vitals: Temp Resp Pulse Ox 97.7 F 16 99 07/21/19 09:13 07/21/19 09:13 07/21/19 09:13 - Notes Notes: PHYSICAL EXAMINATION: Reviewed vital signs and charting by RN GENERAL: Alert, interacts well. Mild distress. HEAD: Normocephalic, atraumatic. EYES: Pupils equal and round. Extraocular movements intact. ENT: Oral mucosa moist, tongue midline. NECK: Full range of motion. Trachea midline. LUNGS: Clear to auscultation bilaterally, no wheezes, rales, or rhonchi. No respiratory distress. HEART: Regular rate and rhythm. No murmur ABDOMEN: soft, non-tender. No distention. Bowel sounds present BACK: Significant right CVA tenderness to light palpation EXTREMITIES: Moves all 4 extremities spontaneously. No edema, No cyanosis. PSYCH: Normal affect, normal mood. SKIN: Warm, dry, normal turgor. No rashes or lesions noted. Course - Re-evaluation Re-evalutation: 07/21/19 13:14 Patient in mild distress and disgruntled. CT abdomen/pelvis with IV contrast no t yet complete. Patient is yet to provide urine. Differential includes pyelonephritis versus nephrolithiasis. 07/21/19 15:15 CT abdomen pelvis was negative for any nephrolithiasis, hydronephrosis, infectious process. Creatinine is 1.42 with a BUN of 21. There is a slight bump from previous on 04/23/2019 which was 1.09. At this point I do not feel it warrants admission but close follow-up with her primary doctor. I have advised patient of this, she is tolerating fluids without problem. Patient is stable for discharge with strict follow-up. She agrees with the plan. - Vital Signs Vital signs: Temp Pulse Resp BP Pulse Ox 97.7 F 73 16 164/63 H 99 07/21/19 09:17 07/21/19 09:17 07/21/19 09:17 07/21/19 09:17 07/21/19 09:17 - Laboratory Result Diagrams: 07/21/19 09:49 07/21/19 09:49 Laboratory results interpreted by me: 07/21/19 07/21/19 07/21/19 09:49 09:49 09:49 Hgb 11.9 L MCH 26.3 L MCHC 31.7 L RDW 17.4 H PT 26.7 H BUN 21 H Creatinine 1.42 H Est GFR ( Amer) 44 L Est GFR (MDRD) Non-Af 37 L Alkaline Phosphatase 127 H Ur Leukocyte Esterase 07/21/19 13:47 Hgb MCH MCHC RDW PT BUN Creatinine Est GFR ( Amer) Est GFR (MDRD) Non-Af Alkaline Phosphatase Ur Leukocyte Esterase TRACE H Discharge - Discharge Clinical Impression: Right flank pain, Elevated serum creatinine Condition: Good Disposition: HOME, SELF-CARE Additional Instructions: You were seen for right flank pain. You do have a mildly elevated serum creatinine but your CT was normal. Your urinalysis did not show a clear UTI but it has been sent for culture. At this point it is something we do not need to treat, but if the culture grows out bacteria you will get contacted and started on antibiotics. Is important that you increase your fluid intake over the next several days. Please follow-up with your primary care provider on Tuesday morning. Please return to the emergency department if you develop worsening, severe flank pain, inability to urinate, your urine is dark brown or Coca[employer]a colored, you develop severe abdominal pain, intractable nausea or vomiting, or you have any other concerning symptoms. Referrals: ORLANDO GAVIN PA [Primary Care Provider] - 07/23/19
[2019-07-21] MEDS ORDERED: FENTANYL CITRATE INJ/PF 100 MCG/2 ML AMPUL IV ONE (13:17)
--- NOTE | 2019-07-21 13:56 | RADIOLOGY REPORT (SQ) ---
EXAM DESCRIPTION: CT ABD/PELVIS NO ORAL OR IV COMPLETED DATE/TIME: 07/21/2019 1:31 pm REASON FOR STUDY: R flank pain COMPARISON: None. TECHNIQUE: CT scan of the abdomen and pelvis performed without intravenous or oral contrast. Images reviewed with lung, soft tissue, and bone windows. Reconstructed coronal and sagittal MPR images revi ewed. All images stored on PACS. All CT scanners at this facility use dose modulation, iterative reconstruction, and/or weight based d osing when appropriate to reduce radiation dose to as low as reasonably achievable (ALARA). [facility]: Dose Right [facility]: CareDose [facility]: Dose Right [facility]: Teradose 4D [facility]: Smart [employer] RADIATION DOSE: CT Rad equipment meets quality standard of care and radiation dose reduction techniq ues were employed. CTDIvol: 18.9 mGy. DLP: 1112 mGy-cm.mGy. LIMITATIONS: None. FINDINGS: LOWER CHEST: No significant findings. No nodules or infiltrates. NON-CONTRASTED LIVER, SPLEEN, ADRENALS: Evaluation limited by lack of IV contrast. No identified sign ificant masses. PANCREAS: No masses. No peripancreatic inflammatory changes. GALLBLADDER: No identified stones by CT criteria. No inflammatory changes to suggest cholecystitis. RIGHT KIDNEY AND URETER: No suspicious masses. Assessment limited by lack of IV contrast. No signif icant calcifications. No hydronephrosis or hydroureter. LEFT KIDNEY AND URETER: No suspicious masses. Assessment limited by lack of IV contrast. No signifi cant calcifications. No hydronephrosis or hydroureter. AORTA AND RETROPERITONEUM: No aneurysm. No retroperitoneal masses or adenopathy. BOWEL AND PERITONEAL CAVITY: No obvious masses or inflammatory changes. No free fluid. APPENDIX: Normal. PELVIS, BLADDER, AND ABDOMINAL WALL:No abnormal masses. No free fluid. Bladder normal. BONES: No significant findings. OTHER: No other significant finding. IMPRESSION: NO SIGNIFICANT OR ACUTE PROCESS IN THE ABDOMEN OR PELVIS. COMMENT: Quality ID # [id number]: Final reports with documentation of one or more dose reduction techniques (e.g., Automated exposure control, adjustment of the mA and/or kV according to patient size, use of iterative reconstruction technique) TECHNICAL DOCUMENTATION: JOB ID: [id number] [employer]- All Rights Reserved Reading location - IP/workstation name: [email or web address]
[2019-07-21 14:15] LABS: APPEARANCE,URINE CLEAR; BILIRUBIN,URINE NEGATIVE (NEGATIVE); COLOR,URINE YELLOW; GLUCOSE, URINE NEGATIVE (NEGATIVE); KETONES,URINE NEGATIVE (NEGATIVE); LEUKOCYTE ESTERASE,URINE TRACE (NEGATIVE); NITRITE,URINE NEGATIVE (NEGATIVE); PROTEIN,URINE NEGATIVE (NEGATIVE); URINE SPECIFIC GRAVITY 1.013; UROBILINOGEN,URINE NEGATIVE mg/dL (<2.0)
[2019-07-21] MEDS ORDERED: ONDANSETRON ODT 4 MG TAB (6 TAB/ER DISP) PO PRN (15:44)
[2019-07-21 16:14] VITALS: BP 171/47
== END 2019-07-21 16:15 | disposition home or self-care (01) ==
LOC: ER 09:13
DX: R10.9 Unspecified abdominal pain (principal); R79.89 Other specified abnormal findings of blood chemistry; E78.00 Pure hypercholesterolemia, unspecified; I10 Essential (primary) hypertension; E11.9 Type 2 diabetes mellitus without complications; E03.9 Hypothyroidism, unspecified; Z87.440 Personal history of urinary (tract) infections; Z79.02 Long term (current) use of antithrombotics/antiplatelets; Z95.2 Presence of prosthetic heart valve; Z90.710 Acquired absence of both cervix and uterus
CPT/HCPCS: 99284; 96361; 96374; 36415; 87086; 85025; 85610; 87088; 80053; 81001; 87186; 74176; A9270 ×2; J3010; J7030

== ENCOUNTER → 2019-07-31 | Outpatient (CLI) | payer MEDICARE, OTHER ==
--- NOTE | 2019-07-31 12:36 | RADIOLOGY REPORT (SQ) ---
EXAM DESCRIPTION: LUMBAR SPINE COMPLETE COMPLETED DATE/TIME: 07/31/2019 11:38 am REASON FOR STUDY: LOW BACK PAIN M54.5 LOW BACK PAIN COMPARISON: 07/21/2019 NUMBER OF VIEWS: Five views including obliques. TECHNIQUE: AP, lateral, oblique, and sacral radiographic images acquired of the lumbar spine. LIMITATIONS: None. FINDINGS: MINERALIZATION: Normal. SEGMENTATION: 5 [id number]-[id number] lumbar vertebral bodies. ALIGNMENT: Mild straightening of the normal lumbar lordosis. VERTEBRAE: Maintained height. No fracture or worrisome bone lesion. DISCS: There is multilevel degenerative disc disease with disc height loss, subchondral sclerosis and osteophytosis, greatest at L3-4 and L4-5. POSTERIOR ELEMENTS: Pedicles and facets are intact. Mild lower lumbar facet arthropathy. No pars de fect or posterior arch defects. HARDWARE: None in the spine. PARASPINAL SOFT TISSUES: Aortic atherosclerosis. PELVIS: Intact as visualized. No fractures or worrisome bone lesions. SI joints intact. OTHER: No other significant finding. IMPRESSION: Moderate degenerate disc disease throughout the lumbar spine greatest at L3-4 and L4-5. Lower lumbar facet arthropathy. No evidence of acute bony abnormality. TECHNICAL DOCUMENTATION: JOB ID: [id number] [employer]- All Rights Reserved Reading location - IP/workstation name: [email or web address]
== END ==
LOC: OD 11:27
PROVIDERS: ATTEND Physician Assistant
DX: M51.36 Other intervertebral disc degeneration, lumbar region (principal); M54.5 Low back pain
CPT/HCPCS: 72110

== ENCOUNTER 2020-02-16 11:53 | Emergency (ER) | payer MEDICARE, OTHER ==
[2020-02-16 12:45] LABS: APPEARANCE,URINE CLEAR; BILIRUBIN,URINE NEGATIVE (NEGATIVE); COLOR,URINE YELLOW; GLUCOSE, URINE NEGATIVE (NEGATIVE); KETONES,URINE NEGATIVE (NEGATIVE); LEUKOCYTE ESTERASE,URINE TRACE (NEGATIVE); NITRITE,URINE NEGATIVE (NEGATIVE); PROTEIN,URINE NEGATIVE (NEGATIVE); URINE SPECIFIC GRAVITY 1.016; UROBILINOGEN,URINE NEGATIVE mg/dL (<2.0)
--- NOTE | 2020-02-16 12:46 | ER Document Report ---
ED Medical Screen (RME) - General Stated Complaint: BLOOD IN URINE Time Seen by Provider: 02/16/20 12:43 Primary Care Provider: ORLANDO AARON PA-C [Primary Care Provider] - Follow up as needed Mode of Arrival: Ambulatory Information source: Patient Notes: 69-year-old female patient presents emergency department concerns for vaginal bleeding, left flank pain that began this morning. Patient reports she is on Coumadin. She has a history of bleeding on the brain. She has primary care provider of Dr. Arredondo. She states she has not had any vaginal bleeding at least 2 years as she is in menopause. She reports she frequently gets kidney infections. She appears well, nontoxic, no acute distress noted. I have greeted and performed a rapid initial assessment of this patient. A com prehensive ED assessment and evaluation of the patient, analysis of test results and completion of the medical decision making process will be conducted by additional ED providers. I have specifically instructed the patient or family members with the patient to immediately return to any nursing staff should anything change in the patient's condition or with their chief complaint. TRAVEL OUTSIDE OF THE [place] IN LAST 30 DAYS: No - Related Data Allergies/Adverse Reactions: omega-3 acid ethyl esters Allergy (Verified 03/06/19 11:41) propoxyphene napsylate [From Darvocet-N 100] Allergy (Verified 03/06/19 11:41) Past Medical History - Past Medical History Cardiac Medical History: Reports: Hx Hypercholesterolemia, Hx Hypertension Endocrine Medical History: Reports: Hx Diabetes Mellitus Type 2 - borderline, Hx Graves' Disease, Hx Hypothyroidism Renal/ Medical History: Reports: Hx Ectopic . Denies: Hx Peritoneal Dialysis GI Medical History: Reports: Hx Colonoscopy - With polyps removed, Hx Endoscopy Musculoskeltal Medical History: Reports Hx Musculoskeletal Deformity Past Surgical History: Reports: Hx Cardiac Surgery - Mitral valve mechanical, Hx Hysterectomy, Hx Thyroid Surgery - Removed r/t goiter - Immunizations Hx Diphtheria, Pertussis, Tetanus Vaccination: Yes - 2002 Doctor's Discharge - Discharge Referrals: ORLANDO AARON PA-C [Primary Care Provider] - Follow up as needed
[2020-02-16 13:12] LABS: ABSOLUTE BASOPHILS # (AUTO) 0.1 10^3/uL (0.0-0.2); ABSOLUTE EOSINOPHILS # (AUTO) 0.2 10^3/uL (0.0-0.6); ABSOLUTE LYMPHOCYTES (AUTO) 2.2 10^3/uL (0.5-4.7); ABSOLUTE MONOCYTES (AUTO) 0.5 10^3/uL (0.1-1.4); ABSOLUTE NEUT (AUTO) 5.5 10^3/uL (1.7-8.2); BASOPHILS % (AUTO) 0.9 % (0-2); EOSINOPHILS % (AUTO) 2.5 % (0-6); HEMATOCRIT 38.5 % (36.0-47.0); HEMOGLOBIN 12.2 g/dL (12.0-15.5); LYMPHOCYTES % (AUTO) 25.5 % (13-45); MEAN CORPUSCULAR HEMOGLOBIN 26.5 pg (27.0-33.4); MEAN CORPUSCULAR HGB CONC 31.7 g/dL (32.0-36.0); MEAN CORPUSCULAR VOLUME 84 fl (80-97); MONOCYTES % (AUTO) 6.5 % (3-13); PLATELET COUNT 223 10^3/uL (150-450); RED CELL DISTRIBUTION WIDTH 17.5 % (11.5-14.0); SEGMENTED NEUTROPHILS % (AUTO) 64.6 % (42-78); TOTAL CELLS COUNTED % (AUTO) 100 %; WHITE BLOOD COUNT 8.4 10^3/uL (4.0-10.5)
[2020-02-16 13:27] LABS: INTERNATIONAL RATION (INR) 2.25; PROTHROMBIN TIME 25.3 SEC (11.4-15.4)
[2020-02-16 13:28] LABS: PARTIAL THROMBOPLASTIN TIME 45.3 SEC (23.5-35.8)
[2020-02-16 13:29] LABS: ALBUMIN 4.4 g/dL (3.5-5.0); ALKALINE PHOSPHATASE 134 U/L (38-126); ANION GAP 7 (5-19); ASPARTATE AMINO TRANSFERASE 32 U/L (14-36); BILIRUBIN,TOTAL 0.6 mg/dL (0.2-1.3); BLOOD UREA NITROGEN 20 mg/dL (7-20); CARBON DIOXIDE 30 mmol/L (22-30); CHLORIDE 103 mmol/L (98-107); GLUCOSE 111 mg/dL (75-110); POTASSIUM 4.7 mmol/L (3.6-5.0); TOTAL PROTEIN 7.3 g/dL (6.3-8.2)
--- NOTE | 2020-02-16 14:09 | RADIOLOGY REPORT (SQ) ---
EXAM DESCRIPTION: U/S NON OB PEL TV W/DOPPLER IMAGES COMPLETED DATE/TIME: 02/16/2020 1:49 pm REASON FOR STUDY: vag bleed post menopause Status post hysterectomy in the . COMPARISON: CT abdomen and pelvis 07/21/2019. TECHNIQUE: Dynamic and static grayscale images acquired of the pelvis via transvaginal approach and recorded on PACS. Selected color Doppler images were obtained. LIMITATIONS: Overlying bowel gas. FINDINGS: UTERUS: Status post hysterectomy. RIGHT OVARY AND DOPPLER: The right ovary was not visualized, obscured by overlying bowel gas. LEFT OVARY AND DOPPLER: The left ovary was not visualized, obscured by overlying bowel gas. FREE FLUID: None noted. IMPRESSION: Status post hysterectomy. Nonvisualized ovaries. TECHNICAL DOCUMENTATION: JOB ID: [id number] [employer]- All Rights Reserved Rev-12/16 Reading location - IP/workstation name: [email or web address]
--- NOTE | 2020-02-16 16:52 | ER Document Report ---
ED GI/ - General Chief Complaint: Vaginal Bleeding Stated Complaint: BLOOD IN URINE Time Seen by Provider: 02/16/20 12:43 Primary Care Provider: [facility] [Provider Group] - Follow up in 1 week ORLANDO AARON PA-C [PHYSICIAN METAL CHECKER] - Follow up in 1 week Mode of Arrival: Ambulatory Notes: Patient is 69-year-old female who presents emergency department with a chief com plaint of vaginal bleeding. Patient states that her bleeding started yesterday. Patient states that she noticed a small amount of blood on the toilet paper. She is concerned because she is currently on Coumadin. Patient denies any large clots. Patient also has complaints of a headache. Patient has history of an intracranial bleed from being on Coumadin. Denies any numbness, tingling, or any other symptoms. TRAVEL OUTSIDE OF THE [place] IN LAST 30 DAYS: No - Related Data Allergies/Adverse Reactions: omega-3 acid ethyl esters Allergy (Verified 03/06/19 11:41) propoxyphene napsylate [From Darvocet-N 100] Allergy (Verified 03/06/19 11:41) Past Medical History - General Information source: Patient - Social History Smoking Status: Never Smoker Family History: Arthritis, CAD, CVA, Hyperlipidemia, Hypertension, Malignancy, Thyroid Disfunction, Other - Past Medical History Cardiac Medical History: Reports: Hx Hypercholesterolemia, Hx Hypertension Endocrine Medical History: Reports: Hx Diabetes Mellitus Type 2 - borderline, Hx Graves' Disease, Hx Hypothyroidism Renal/ Medical History: Reports: Hx Ectopic . Denies: Hx Peritoneal Dialysis GI Medical History: Reports: Hx Colonoscopy - With polyps removed, Hx Endoscopy Musculoskeletal Medical History: Reports Hx Musculoskeletal Deformity Past Surgical History: Reports: Hx Cardiac Surgery - Mitral valve mechanical, Hx Hysterectomy, Hx Thyroid Surgery - Removed r/t goiter - Immunizations Hx Diphtheria, Pertussis, Tetanus Vaccination: Yes - 2002 Hx Pneumococcal Vaccination: 05/01/10 Review of Systems - Review of Systems Notes: REVIEW OF SYSTEMS: CONSTITUTIONAL : Denies recent illness. Denies recent unintentional weight loss. Denies fever, chills, or sweats. EENT: Denies eye, ear, throat, or mouth pain, discharge, or symptoms. Denies nasal or sinus congestion. CARDIOVASCULAR: Denies chest pain. RESPIRATORY: Denies shortness of breath, cough, congestion, difficulty breathing, or wheezing. GASTROINTESTINAL: Denies nausea, vomiting, and diarrhea. Denies abdominal pain. Denies constipation. GENITOURINARY: Denies difficulty urinating, burning, blood in urine, urgency or frequency. FEMALE GENITOURINARY: See HPI. MUSCULOSKELETAL: Denies neck and back pain. Denies joint pain or swelling. SKIN: Denies rash, itchiness, or lesions HEMATOLOGIC : Denies easy bruising or bleeding. LYMPHATIC: Denies swollen, painful, enlarged glands. NEUROLOGICAL: Denies no numbness or tingling denies weakness. Denies headache. Denies altered mental status. Denies alteration in speech. PSYCHIATRIC: Denies stress, anxiety, alteration in sleep patterns, or depression. All other systems reviewed and negative. Physical Exam - Vital signs Vitals: Temp Pulse Resp BP Pulse Ox 98.5 F 70 16 169/84 H 100 02/16/20 11:58 02/16/20 11:58 02/16/20 11:58 02/16/20 11:58 02/16/20 11:58 - Notes Notes: PHYSICAL EXAMINATION: GENERAL: Appears well, healthy, well-nourished, no acute distress. HEAD: Normocephalic, atraumatic. EYES: PERRL, conjunctiva normal, all extraocular movements intact, sclera nonicteric ENT: Moist mucous membranes. NECK: Supple, no noticeable swelling, redness, rash. Normal range of motion. LUNGS: Equal breath sounds bilaterally and clear to auscultation. No wheezes rales or rhonchi. CARDIOVASCULAR: S1-S2, regular rate, regular rhythm. Radial pulses 2+, normal. ABDOMEN: Normoactive bowel sounds. Soft, nontender, no guarding, no rebound tenderness, and no masses palpated. EXTREMITIES: Normal strength and range of motion, no pitting or edema. No cyanosis. NEUROLOGICAL: Moves all extremities upon command. Strength 5/5 in all extremities. PSYCH: Normal mood, normal affect. SKIN: Warm, dry. No rash, lesions, ulcerations noted. Normal skin turgor. CABLE PLACER: Small abrasion noted to right side of the vaginal canal. No excessive bleeding noted. Course - Re-evaluation Re-evalutation: 02/16/20 19:36 Pelvic exam was done with KATIE Mensah at bedside. Small abrasion noted to the right of the vaginal canal. It was not excessively bleeding, but was oozing. No large amounts of blood noted. Patient has 3+ epithelial cells and 3+ bacteria noted. We will start the patient on Flagyl for bacterial vaginosis. Hematology is unremarkable. Coags show an INR of 2.25. Discussed this with the patient. She will follow-up with her primary care provider in regards to her IN R being slightly subtherapeutic. Creatinine is 1.31, but this is normal for the patient. Other chemistries are unremarkable. Liver enzymes are normal. Urinalysis shows trace leukocytes in her urine, but this is consistent with bacteria noted on her wet mount. Patient will follow-up with her primary care provider. Advised patient to follow-up with MAINTENANCE DEPARTMENT TECHNICIAN. She is in agreement with this plan. Follow-up precautions were given. Verbal discharge instructions were given to the patient. They verbalized understanding. They are stable for discharge. - Vital Signs Vital signs: Temp Pulse Resp BP Pulse Ox 97.8 F 62 16 144/77 H 100 02/16/20 19:56 02/16/20 19:56 02/16/20 19:56 02/16/20 19:56 02/16/20 19:56 - Laboratory Result Diagrams: 02/16/20 12:51 02/16/20 12:51 Laboratory results interpreted by me: 02/16/20 02/16/20 02/16/20 12:05 12:51 12:51 MCH 26.5 L MCHC 31.7 L RDW 17.5 H PT 25.3 H APTT 45.3 H Creatinine Est GFR ( Amer) Est GFR (MDRD) Non-Af Glucose Alkaline Phosphatase Ur Leukocyte Esterase TRACE H 02/16/20 12:51 MCH MCHC RDW PT APTT Creatinine 1.31 H Est GFR ( Amer) 49 L Est GFR (MDRD) Non-Af 40 L Glucose 111 H Alkaline Phosphatase 134 H Ur Leukocyte Esterase Discharge - Discharge Clinical Impression: Vaginal bleeding Headache Qualifiers: Headache type: unspecified Headache chronicity pattern: unspecified pattern Intractability: not intractable Qualified Code(s): R51 - Headache Urinary tract infection Qualifiers: Urinary tract infection type: acute cystitis Hematuria presence: without hematuria Qualified Code(s): N30.00 - Acute cystitis without hematuria Condition: Stable Disposition: HOME, SELF-CARE Instructions: Urinary Tract Infection ([facility]) Additional Instructions: You were seen today in the emergency department in the emergency department for vaginal bleeding. You are a small tear in your vaginal canal. This will heal on its own. You may have a large amount of bleeding due to your Coumadin use. Your CT of your head was normal. There was no bleeding noted. You are being started on ciprofloxacin to help with your urinary symptoms. Follow-up with your primary care provider in regards to this visit. You have an overgrowth of natural vaginal bacteria, called bacterial vaginosis. You are being treated with an antibiotic called metronidazole. Do not drink alcohol while taking this medication. Complete all of the antibiotic even if your symptoms have resolved. Return for abdominal pain, vomiting, fever of greater than 101F, or any other symptoms that are worrisome to you. Please follow-up with your MAINTENANCE DEPARTMENT TECHNICIAN or primary care doctor as needed. Prescriptions: Ciprofloxacin HCl [Cipro 500 mg Tablet] 500 mg PO BID #10 tablet Metronidazole [Flagyl 500 mg Tablet] 500 mg PO Q6H #28 tablet Referrals: ORLANDO AARON PA-C [PHYSICIAN METAL CHECKER] - Follow up in 1 week [facility] [Provider Group] - Follow up in 1 week
--- NOTE | 2020-02-16 17:24 | RADIOLOGY REPORT (SQ) ---
EXAM DESCRIPTION: CT HEAD WITHOUT IMAGES COMPLETED DATE/TIME: 02/16/2020 5:14 pm REASON FOR STUDY: headache; on coumadin COMPARISON: 10/04/2018. TECHNIQUE: Axial images acquired through the brain without intravenous contrast. Images reviewed wi th bone, brain and subdural windows. Additional sagittal and coronal reconstructions were generated. Images stored on PACS. All CT scanners at this facility use dose modulation, iterative reconstruction, and/or weight based d osing when appropriate to reduce radiation dose to as low as reasonably achievable (ALARA). [facility]: Dose Right [facility]: CareDose [facility]: Dose Right [facility]: Teradose 4D [facility]: [employer] RADIATION DOSE: CT Rad equipment meets quality standard of care and radiation dose reduction techniq ues were employed. CTDIvol: 53.2 mGy. DLP: 1044 mGy-cm. mGy. LIMITATIONS: None. FINDINGS: VENTRICLES: Normal size and contour. CEREBRUM: No masses. No hemorrhage. No midline shift. No evidence for acute infarction. Normal gra y/white matter differentiation. No areas of low density in the white matter. CEREBELLUM: No masses. No hemorrhage. No alteration of density. No evidence for acute infarction. EXTRAAXIAL SPACES: No fluid collections. No masses. ORBITS AND GLOBE: No intra- or extraconal masses. Normal contour of globe without masses. CALVARIUM: No fracture. Hyperostosis and stable dural calcifications. PARANASAL SINUSES: No fluid or mucosal thickening. SOFT TISSUES: No mass or hematoma. OTHER: No other significant finding. IMPRESSION: No acute findings. EVIDENCE OF ACUTE STROKE: NO. COMMENT: Quality ID # [id number]: Final reports with documentation of one or more dose reduction techniques (e.g., Automated exposure control, adjustment of the mA and/or kV according to patient size, use of iterative reconstruction technique) TECHNICAL DOCUMENTATION: JOB ID: [id number] 2010 [employer]- All Rights Reserved Reading location - IP/workstation name: [email or web address]
[2020-02-16 19:39] LABS: BACTERIA (WET MOUNT) 3+ BACTERIA SEEN; EPITHELIALS (WET MOUNT) 3+ EPITHELIALS SEEN; T.VAGINALIS (WET MOUNT) NO TRICHOMONAS SEEN; WBCS (WET MOUNT) RARE WBCS SEEN; YEAST (WET MOUNT) NO YEAST SEEN
[2020-02-16 19:58] VITALS: BP 144/77
== END 2020-02-16 19:58 | disposition home or self-care (01) ==
LOC: ER 11:53
DX: S30.814A Abrasion of vagina and vulva, initial encounter (principal); X58.XXXA Exposure to other specified factors, initial encounter; N30.00 Acute cystitis without hematuria; R51 Headache; I10 Essential (primary) hypertension; Z79.01 Long term (current) use of anticoagulants; Z88.8 Allergy status to other drugs, medicaments and biological substances; Z88.6 Allergy status to analgesic agent; Z88.5 Allergy status to narcotic agent
CPT/HCPCS: 36415; 70450; 76830; 80053; 81001; 85025; 85610; 85730; 87086; 87088; 87210; 93976; 99284

== ENCOUNTER → 2020-03-11 | Outpatient (CLI) | payer MEDICARE, OTHER ==
[2020-03-11 13:08] LABS: INTERNATIONAL RATION (INR) 2.88; PROTHROMBIN TIME 30.1 SEC (11.4-15.4)
[2020-03-11 13:22] LABS: CHOLESTEROL 197.86 mg/dL (0-200); TRIGLYCERIDES 215 mg/dL (<150)
[2020-03-11 13:33] LABS: ANION GAP 6 (5-19); BLOOD UREA NITROGEN 22 mg/dL (7-20); CALCIUM 10.2 mg/dL (8.4-10.2); CARBON DIOXIDE 29 mmol/L (22-30); CHLORIDE 102 mmol/L (98-107); GLUCOSE 104 mg/dL (75-110); POTASSIUM 4.6 mmol/L (3.6-5.0)
[2020-03-11 13:34] LABS: DIRECT LDL 119 mg/dL (<100)
== END ==
LOC: OD 11:18
PROVIDERS: ATTEND Specialist
DX: R10.31 Right lower quadrant pain (principal); Z79.01 Long term (current) use of anticoagulants
CPT/HCPCS: 36415; 80048; 80061; 85610

== ENCOUNTER → 2020-04-28 | Outpatient (CLI) | payer MEDICARE, OTHER ==
--- NOTE | 2020-04-28 12:34 | RADIOLOGY REPORT (SQ) ---
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 Images reviewed wi th bone, brain and subdural windows. Additional sagittal and coronal reconstructions were generated. Images stored on PACS. All CT scanners at this facility use dose modulation, iterative reconstruction, and/or weight based d osing when appropriate to reduce radiation dose to as low as reasonably achievable (ALARA). [facility]: Dose Right [facility]: CareDose [facility]: Dose Right [facility]: Teradose 4D [facility]: Splash RADIATION DOSE: CT Rad equipment meets quality standard of care and radiation dose reduction techniq ues were employed. CTDIvol: 48.6 mGy. DLP: 954 mGy-cm. mGy. LIMITATIONS: None. FINDINGS: VENTRICLES: Normal size and contour. CEREBRUM: No masses. No hemorrhage. No midline shift. No evidence for acute infarction. Normal gra y/white matter differentiation. No areas of low density in the white matter. CEREBELLUM: No masses. No hemorrhage. No alteration of density. No evidence for acute infarction. EXTRAAXIAL SPACES: No fluid collections. No masses. ORBITS AND GLOBE: No intra- or extraconal masses. Normal contour of globe without masses. CALVARIUM: Marked calvarial hyperostosis. No fracture or other acute abnormality. PARANASAL SINUSES: No fluid or mucosal thickening. SOFT TISSUES: No mass or hematoma. OTHER: No other significant finding. IMPRESSION: Calvarial hyperostosis interna. No acute intracranial imaging findings. EVIDENCE OF ACUTE STROKE: NO. COMMENT: Quality ID # [id number]: Final reports with documentation of one or more dose reduction techniques (e.g., Automated exposure control, adjustment of the mA and/or kV according to patient size, use of iterative reconstruction technique) TECHNICAL DOCUMENTATION: JOB ID: [id number] 2010 [employer]- All Rights Reserved Reading location - IP/workstation name: [email or web address]
== END ==
LOC: RAD 11:28
PROVIDERS: ATTEND Physician Assistant
DX: I67.9 Cerebrovascular disease, unspecified (principal); M79.2 Neuralgia and neuritis, unspecified; R25.3 Fasciculation
CPT/HCPCS: 70450

== ENCOUNTER → 2020-08-04 | Outpatient (CLI) | payer MEDICARE, OTHER ==
--- NOTE | 2020-08-04 12:25 | RADIOLOGY REPORT (SQ) ---
EXAM DESCRIPTION: U/S RETROPERITON (RENAL/AORTA) IMAGES COMPLETED DATE/TIME: 08/04/2020 12:17 pm REASON FOR STUDY: (R10.9)UNSPECIFIED ABDOMINAL PAIN(R14.0)ABDOMINAL DISTENSION (GASEOUS) R14.0 ABDO YINA DISTENSION (GASEOUS) R10.9 UNSPECIFIED ABDOMINAL PAIN COMPARISON: 07/02/2019 TECHNIQUE: Dynamic and static grayscale images acquired of the kidneys and bladder and recorded on P ACS. Additional selected color Doppler and spectral images recorded. LIMITATIONS: None. FINDINGS: RIGHT KIDNEY: The right kidney measures 10.3 cm in length. Normal echogenicity. No so lid or suspicious masses. No hydronephrosis. No calcifications. LEFT KIDNEY: The left kidney measures 10.3 cm in length. Normal echogenicity. No solid or suspic ious masses. No hydronephrosis. No calcifications. BLADDER: No masses. OTHER FINDINGS: No other significant finding. IMPRESSION: NORMAL RENAL AND BLADDER ULTRASOUND. TECHNICAL DOCUMENTATION: JOB ID: [id number] 2010 [employer]- All Rights Reserved Reading location - IP/workstation name: [email or web address]
--- NOTE | 2020-08-04 12:26 | RADIOLOGY REPORT (SQ) ---
EXAM DESCRIPTION: U/S ABDOMEN LIMITED W/O DOP IMAGES COMPLETED DATE/TIME: 08/04/2020 12:17 pm REASON FOR STUDY: (R10.9)UNSPECIFIED ABDOMINAL PAIN(R14.0)ABDOMINAL DISTENSION (GASEOUS) R14.0 ABDO YINA DISTENSION (GASEOUS) R10.9 UNSPECIFIED ABDOMINAL PAIN COMPARISON: 01/06/2018 TECHNIQUE: Dynamic and static grayscale images acquired of the abdomen and recorded on PACS. Additio nal selected color Doppler and spectral images recorded. LIMITATIONS: None. FINDINGS: PANCREAS: Normal in appearance. LIVER: No masses. Echotexture normal. LIVER VASCULATURE: Normal directional flow of the main portal vein and hepatic veins. GALLBLADDER: No stones. Normal wall thickness. No pericholecystic fluid. ULTRASOUND-DETECTED MILLER'S SIGN: Negative. INTRAHEPATIC DUCTS AND COMMON DUCT: CBD and intrahepatic ducts normal caliber. No filling defects. INFERIOR VENA CAVA: Not assessed. AORTA: Visualized portions of the aorta are normal in caliber. Mid and distal aorta are obscured by overlying bowel gas. RIGHT KIDNEY: Normal size. Normal echogenicity. No solid or suspicious masses. No hydronephrosis. No calcifications. PERITONEAL AND RIGHT PLEURAL SPACE: No ascites or effusions. OTHER: No other significant findings. IMPRESSION: NORMAL RIGHT UPPER QUADRANT ULTRASOUND. TECHNICAL DOCUMENTATION: JOB ID: [id number] 2010 [employer]- All Rights Reserved Reading location - IP/workstation name: [email or web address]
== END ==
LOC: RAD 11:08
PROVIDERS: ATTEND Physician Assistant
DX: R10.9 Unspecified abdominal pain (principal); R14.0 Abdominal distension (gaseous)
CPT/HCPCS: 76705; 76770